=== PATIENT | female | born 1930 | race Caucasian/White ===

== ENCOUNTER 2017-05-19 18:10 | Inpatient (IN) ==
--- NOTE | 2017-05-19 19:03 | Emergency Department Note ---
Arrival - Arrival Chief Complaint: Shortness of Breath ED Nursing Triage Note: pt was dx with pneumonia about 2 weeks ago. pt has a cough and pain in back with coughing. pt also has swelling to both legs Mode of Arrival: Stretcher Time Seen by Provider: 05/19/17 18:52 - History of Present Illness HPI Narrative: This is an 86-year-old white female with history of interstitial lung disease, left ventricular ejection fraction of 60% with diastolic dysfunction, bilateral pneumonia in December 2016, who presents with a week of generalized fatigue and shortness of breath for which she saw her family physician approximately 1 week ago for chest x-ray did not show pneumonia specifically but where the radiologist recommended a CT scan of the chest which the patient refused who was treated with a shot of ceftriaxone and Zithromax with prednisone and presents now with worsening cough fatigue and new onset of midthoracic back pain for the past 2 days. The patient has had no fever nor chills. Allergies/Adverse Reactions: Allergies Allergy/AdvReac Type Severity Reaction Status Date / Time Iodinated Contrast Media - Allergy Unknown Unknown/Unable Verified 04/10/16 15: 41 Oral and to obtain [Iodinated Contrast Media - IV Dye] iodine Allergy Unknown Unknown/Unable Verified 04/10/16 15:41 to obtain Home Medications: Home Medications Medication Instructions Recorded Confirmed Type Aspirin [Ecotrin] 81 mg PO QAM 12/21/15 05/19/17 History Budesonide/Formoterol 160-4.5 1 puff INH BID 12/21/15 05/19/17 History [Symbicort 160-4.5] Carvedilol [Coreg] 3.125 mg PO BID 12/21/15 05/19/17 History Omeprazole 40 mg PO QAM 04/10/16 05/19/17 History Ipratropium/Albuterol Inhaler 2 puff INH BID 07/23/16 05/19/17 History [Combivent Respimat Inhaler] Ipratropium/Albuterol Sulfate 3 ml INH QID PRN 07/23/16 05/19/17 History [Iprat-Albut 0.5-3(2.5) mg/3 ml] Multivitamin (Centrum) [Centrum 1 tablet PO BEDTIME 07/23/16 05/19/17 History Tab] predniSONE TAB [PredniSONE] 10 mg PO QAM 07/23/16 05/19/17 History Cefdinir [Cefdinir] 300 mg PO Q12H 05/19/17 05/19/17 History Furosemide Tab [Lasix Tab] 40 mg PO QAM 05/19/17 05/19/17 History HYDROcodone/ACETAMIN 5-325 [[place] 1 tablet PO Q4H PRN 05/19/17 05/19/17 History 5-325] Polyethylene Glycol Powder 17 gm PO QAM 05/19/17 05/19/17 History [Miralax] Rosuvastatin Calcium [Rosuvastatin 10 mg PO BEDTIME 05/19/17 05/19/17 History Calcium] Valsartan [Valsartan] 40 mg PO QAM 05/19/17 05/19/17 History predniSONE TAB [PredniSONE] 20 mg PO QAM 05/19/17 05/19/17 History Review of System - Review of System Constitutional: Absent: fever, night sweats Eyes: Absent: redness, vision change Head/Ears/Nose/Throat: Absent: epistaxis, nasal drainage Respiratory: Present: cough Cardiovascular: Present: dyspnea on exertion. Absent: palpitations, edema Gastrointestinal: Absent: diarrhea, constipation, hematemesis, melena Genitourinary female: Absent: dysuria, discharge Musculoskeletal: Absent: joint swelling, lower back pain, leg pain Skin: Absent: change in color, change in hair/nails, pruritus Neurological: Absent: numbness, paresthesias Psychiatric: Absent: anxiety, depression Endocrine: Absent: heat intolerance, polydipsia, polyuria Hematological/Lymphatic: Absent: easy bruising, lymphadenopathy Allergic/Immunologic: Absent: urticaria, itchy eyes Medical,Surgical,& Family Hx - Medical History Cardio: History of: CHF, Hypertension, Cardiovascular Problems Endocrine: History of: Dyslipidemia Rheumatology: History of;: Rheumatoid Arthritis Respiratory: History of: Asthma, Bronchitis, COPD, Respiratory Problems (2 inhalers wheezing put on by earring maker) Renal: History of: Renal Failure, Renal Problems Gastrointestinal: History of: GERD, GI Problems (large hiatal hernia with aspiration) Musculoskeletal: History of: Musculoskeletal Problems (left shoulder pain) - Surgical History Cardiac Surgeries: Sugical HX of: Cardiac Surgery (CABG X3 1995) HEENT Surgeries: Surgical HX of: Eye Surgery Abdominal Surgeries: Surgical HX of: Cholecystectomy Orthopedic Surgeries: Surgical HX of;: Total Knee Replacement (left knee X2) - Family History Family History: Reports;: Family Hypertension - Social History Smoking Status: Never smoker Frequency of Alcohol Use: None Type of Drug Use: None Exam Vital Signs: Vital Signs Temperature 98.7 F 05/19/17 18:15 Pulse Rate 103 H 05/19/17 18:15 Respiratory Rate 18 05/19/17 18:44 Blood Pressure 174/74 05/19/17 18:15 O2 Sat by Pulse Oximetry 95 05/19/17 18:15 - General Exam limited due to: ALOC - Head Head exam: Present: atraumatic, normocephalic - Eye Eye exam: Present: normal appearance, PERRL, EOMI - ENT ENT exam: Present: normal exam, normal oropharynx - Neck Neck exam: Present: normal inspection, full ROM - Chest Chest inspection: Present: normal inspection - Respiratory Respiratory exam: Present: normal lung sounds bilaterally. Absent: accessory muscle use, rales, rhonchi, wheezes - Cardiovascular Cardiovascular exam: Present: regular rate, normal rhythm - Abdominal Exam Abdominal exam: Present: soft, normal bowel sounds - Extremities Exam Extremities exam: Present: normal inspection, full ROM - Back Exam Back exam: Present: normal inspection, full ROM - Neurological Exam Neurological exam: Present: alert, oriented X3, CN II-XII intact - Psychiatric Psychiatric exam: Present: normal affect, normal mood Course Course Narrative: Because the patient has persistent shortness of breath and profound fatigue over the past week which is dramatic change from her baseline and because the patient is unwilling to go home in her current state the patient will be admitted to the hospital for a more expedient pulmonary and cardiology consultation with regard to the interstitial pulmonary fibrotic problem and the large hiatal hernia which is compressing the right atrium as to whether these 2 conditions may be contributing to the patient's dyspnea on exertion which is so dramatically worse over the past week. The case was discussed with the hospitalist who agreed to admit the hospital patient to the hospital Results - Labs CBC & BMP: 05/19/17 18:49 05/19/17 18:49 Disposition Clinical Impression: Interstitial pulmonary fibrosis, Dyspnea, Fatigue Disposition: Still a Patient
[2017-05-19 19:32] LABS: Basophils % 0.1 % (0.0-0.8); Eosinophils % 0.2 % (0.00-10.9); Hematocrit 37.6 VOL% (35.7-47.0); Hemoglobin 12.8 GM/DL (12.0-16.0); Immature Granulocytes Absolute 0.12 #; Lymphocytes # 1.1 10*3/uL (1.4-4.0); Lymphocytes % 9.5 % (21.3-54.2); Mean Corpuscular Hemoglobin 33 PG (27-34); Mean Corpuscular Volume 96.7 FL (87-102); Mean Platelet Volume 10.8 FL (9.6-12.0); Monocytes # 0.9 10*3/uL (0.11-0.8); Monocytes % 7.6 % (1.7-12.7); Neutrophils # 9.3 10*3/uL (1.4-7.4); Neutrophils % 81.6 % (38.7-73.9); Platelet Count 172 T/CUMM (130-400); Red Blood Count 3.89 MC/CUMM (3.8-5.5); Red Cell Distribution Width 14.2 % (9.3-17.3); White Blood Count 11.4 T/CUMM (4-12)
[2017-05-19 19:47] LABS: Alanine Aminotransferase 43 U/L (13-56); Alkaline Phosphatase 94 U/L (45-117); Aspartate Amino Transferase 29 U/L (0-37); Bilirubin,Total < 0.39 MG/DL (0.2-1.0); Blood Urea Nitrogen 33 MG/DL (7-18); Calcium 8.4 MG/DL (8.5-10.1); Glucose 148 MG/DL (74-106); Osmolality,Calculated 284.7 MOS/KG (273-304); Potassium 4.2 MMOL/L (3.5-5.1); Sodium 138 MMOL/L (136-145); Total Protein 6.4 G/DL (6.4-8.3); Troponin I Only 0.035 NG/ML (0.00-0.045)
--- NOTE | 2017-05-19 19:59 | DUMMY REPORT TO COMPLETE ORDER ---
See report scanned to EMR
--- NOTE | 2017-05-19 20:09 | CT Report ---
Exam: CT chest without intravenous contrast Exam date: 05/19/2017 8:00 PM Clinical History: 86 years Female shortness of breath, pulmonary fibrosis Technique: Axial computed tomography images of the chest without intravenous contrast. The CT exam was performed using one or more of the following dose reduction techniques: Automated exposure control, adjustment of the mA and/or kV according to patient size, or use of iterative reconstruction technique. Comparison: No relevant prior studies available Findings: Lungs: Irregular Interlobular septal and peribronchial thickening with groundglass and parenchymal opacities within a central distribution. Pleural spaces: No pneumothorax. No significant effusion Heart: Prior coronary artery bypass graft with atheromatous changes along the lower Mediastinum: Large hiatal hernia with entirety of the stomach above the diaphragm with mass effect on the right atrium Bones/joints: Intact. No acute fracture. No dislocation. Marked osteoporosis with multilevel spondylosis and advanced degenerative changes throughout the shoulders and sternoclavicular joints Soft tissues: Unremarkable Vasculature: Intact Lymph nodes: No enlarged lymph nodes Visualized abdomen: Right renal cysts Impression: 1. Large hiatal hernia with entirity of stomach above the diaphragm resulting in mass effect on the right atrium 2. 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 Other findings as described PROCEDURE INTERPRETED AT [facility] DEPARTMENT OF RADIOLOGY Final Report Signed by: Jesse Rodriguez MD
[2017-05-19 20:12] LABS: VBG Base Excess 5.4 MEQ/L (0-4); VBG Oxygen Saturation 98.1 %; VBG PCO2 43.8 MMHG (41-51); VBG PH 7.454; VBG PO2 118.4 MMHG (17-40)
--- NOTE | 2017-05-19 23:18 | Hospitalist History & Physical ---
Assessment and Plan - Time spent with patient Time spent with patient: Less than 30 minutes (1) Interstitial pulmonary fibrosis Status: Chronic Assessment and plan: O2 as needed Solumedrol 40mg q8 hours Consult pulmonology PPI daily Current Visit: Yes (2) Congestive heart failure Status: Chronic Assessment and plan: Last echo was in 2015. Will order an echo for the AM Lasix 40mg po BID IV Cardiology consultation Repeat troponins and EKGs Current Visit: Yes Qualifiers: Congestive heart failure type: diastolic (3) Hypertension Status: Chronic Assessment and plan: Restarted home medications Current Visit: No (4) Hiatal hernia Status: Chronic Current Visit: No (5) Physical deconditioning Status: Acute Assessment and plan: Will order PT/OT Current Visit: Yes (6) Sacral decubitus ulcer Status: Acute Assessment and plan: Will consult wound care Current Visit: Yes History of Present Illness Chief complaint: shortness of breath, decreased activity History of present illness: Called to the ER for Ms. Renee who is a 86 year old female that has had decreased activity for the past two weeks per daughter. Patient normally walks around, takes herself to the bathroom, and has minimal assistance with her ADL' s. Within the past two weeks, patient has not been as active due to weakness and shortness of breath and has required her to keep her bedtime O2 on throughout the entire day. Patient denies chest pain, fevers, n/v/d, urinary or bowel issues, or change in coughing but does admit to shortness of breath, chronic cough, and lower back pain. Patient saw her PCP Dr. Murillo on Monday. He thought she had pneumonia and was given Rocephin IM, Rx for Zpack , and Prednisone but she has had no significant improvement. Today in the ER she received a CT chest that showed large hiatal hernia with the stomach being above the diaphragm and impending on the right atrium and interstitial fibrosis. She is followed by Dr. Proctor for her pulmonary fibrosis and is scheduled to see him on May 30. She is unsure of her last set of PFT's but could possibly be six months ago. She is followed by Dr. Mark for her CHF and CABG in 1995. She last saw Dr. Mark on Apr 26 with no change in current treatment regimen. Her last echocardiogram was in 2015 which showed a EF of 60%, mild LVH, Grade I diastolic dysfunction, and TVR. Additional history includes hiatal hernia, anemia, HTN, knee replacement, shoulder surgery, 2 C-sections, dyslipidemia, cholecystectomy, appendectomy, and tonsillectomy. She will be admitted under hospital medicine service where she will receive cardiology and pulmonology consultations. Medications were reviewed and reconciled as appropriate. Home Medications Medication Instructions Recorded Confirmed Type Aspirin [Ecotrin] 81 mg PO QAM 12/21/15 05/19/17 History Budesonide/Formoterol 160-4.5 1 puff INH BID 12/21/15 05/19/17 History [Symbicort 160-4.5] Carvedilol [Coreg] 3.125 mg PO BID 12/21/15 05/19/17 History Omeprazole 40 mg PO QAM 04/10/16 05/19/17 History Ipratropium/Albuterol Inhaler 2 puff INH BID 07/23/16 05/19/17 History [Combivent Respimat Inhaler] Ipratropium/Albuterol Sulfate 3 ml INH QID PRN 07/23/16 05/19/17 History [Iprat-Albut 0.5-3(2.5) mg/3 ml] Multivitamin (Centrum) [Centrum 1 tablet PO BEDTIME 07/23/16 05/19/17 History Tab] predniSONE TAB [PredniSONE] 10 mg PO QAM 07/23/16 05/19/17 History Cefdinir [Cefdinir] 300 mg PO Q12H 05/19/17 05/19/17 History Furosemide Tab [Lasix Tab] 40 mg PO QAM 05/19/17 05/19/17 History HYDROcodone/ACETAMIN 5-325 [[place] 1 tablet PO Q4H PRN 05/19/17 05/19/17 History 5-325] Polyethylene Glycol Powder 17 gm PO QAM 05/19/17 05/19/17 History [Miralax] Rosuvastatin Calcium [Rosuvastatin 10 mg PO BEDTIME 05/19/17 05/19/17 History Calcium] Valsartan [Valsartan] 40 mg PO QAM 05/19/17 05/19/17 History predniSONE TAB [PredniSONE] 20 mg PO QAM 05/19/17 05/19/17 History Allergies Allergy/AdvReac Type Severity Reaction Status Date / Time Iodinated Contrast Media - Allergy Unknown Unknown/Unable Verified 04/10/16 15: 41 Oral and to obtain [Iodinated Contrast Media - IV Dye] iodine Allergy Unknown Unknown/Unable Verified 04/10/16 15:41 to obtain Medical,Surgical,& Family Hx - Medical History Cardio: History of: CHF, Hypertension, Cardiovascular Problems No history of: [place] Endocrine: History of: Dyslipidemia Respiratory: History of: Asthma, COPD, Respiratory Problems (pul fibrosis) Gastrointestinal: History of: GERD, GI Problems (large hiatal hernia with aspiration) Hematology: History of: Anemia - Surgical History Cardiac Surgeries: Sugical HX of: Cardiac Surgery (CABG X3 1995) HEENT Surgeries: Surgical HX of: Eye Surgery, Tonsilectomy & Adenoidectomy Abdominal Surgeries: Surgical HX of: Appendectomy, Cholecystectomy Reproductive Surgeries: Surgical HX of;: Section Orthopedic Surgeries: Surgical HX of;: Orthopedic Surgery (shoulder surgery), Total Knee Replacement (left knee X2) - Family History Family History: Reports;: Family Cancer (father-stomach), Family Heart Disease ( CHF-mom), Family Hypertension, Additional Family History (pul fibrosis- sister, 2 aunts, mom; cirrhosis of the liver- son) - Social History Smoking Status: Never smoker Frequency of Alcohol Use: None Type of Drug Use: None Marital Status: Single Lives With:: Alone Functional capacity: independent ambulation - Constitutional Constitutional: Present: fatigue. Absent: anorexia, chills, fever(s), frequent falls, headache(s) - EENT Eyes: Absent: blurry vision Ears: Absent: decreased hearing Nose, mouth and throat: Absent: headache(s), neck pain - Cardiovascular Cardiovascular: Present: dyspnea, dyspnea on exertion, edema. Absent: chest pain at rest, chest pain with activity, diaphoresis, lightheadedness, orthopnea , palpitations - Respiratory Respiratory: Present: cough, dyspnea, dyspnea on exertion. Absent: hemoptysis, change in phlegm color - Gastrointestinal Gastrointestinal: Absent: abdominal pain, change in bowel habits, constipation, diarrhea, dysphagia, nausea, vomiting - Genitourinary Genitourinary: Absent: difficulty urinating, dysuria, flank pain - Musculoskeletal Musculoskeletal: Present: back pain - Neurological Neurological: Absent: abnormal gait - Psychiatric Psychiatric: Absent: anxiety - Endocrine Endocrine: Absent: cold intolerance, heat intolerance - Hematologic/Lymphatic Hematologic/Lymphatic: Absent: easy bleeding Exam - Constitutional Vitals: Period Temp Pulse Resp BP Sys/Merino Pulse Ox Last 24 Hr 98.7 F-98.7 F 103-103 18-20 174-174/74-74 95 General appearance: no acute distress, morbidly obese - Head Head exam: Present: normal inspection, normocephalic - Eye Eye exam: Present: EOMI Pupils: Present: JOSE, normal accommodation - ENT ENT exam: Present: normal exam - Neck Neck exam: Present: normal inspection - Respiratory Respiratory exam: Present: rales (Lower bases bilaterally. Respirations even and unlabored. Symmetrical rise and fall of chest noted.), other (Bowel sounds auscultated over sternum.). Absent: accessory muscle use - Cardiovascular Cardiovascular exam: Present: regular rate and rhythm. Absent: JVD - GI/Abdominal GI/Abdominal exam: Present: soft. Absent: firm, tenderness - Extremities Exam Extremities exam: Present: normal inspection, normal capillary refill, full ROM , edema (3+ edema to bilateral lower extremities.) - Back Exam Back exam: Present: normal inspection - Neurological Exam Neurological exam: Present: alert, oriented X3, CN II-XII intact - Psychiatric Psychiatric exam: Present: normal affect, normal mood - Skin Skin exam: Present: normal color, warm, dry, intact Results - Labs CBC & BMP: 05/19/17 18:49 05/19/17 18:49 Lab Results: I have reviewed the past 24 hour labs - EKG EKG results: interpreted by MASON
[2017-05-19] MEDS ORDERED: guaiFENesin 200 MG/10 ML UDCUP PO PRN (23:47)
[2017-05-19] MEDS ORDERED: SODIUM CHLORIDE 0.9% 1,000 ML IV SCH (23:47)
[2017-05-19] MEDS ORDERED: MORPHINE 2 MG/1 ML SYRINGE IV PRN (23:47)
[2017-05-19] MEDS ORDERED: ONDANSETRON 4 MG/2 ML VIAL IV PRN (23:47)
[2017-05-19] MEDS ORDERED: ACETAMINOPHEN 325 MG TABLET PO PRN (23:47)
[2017-05-20 00:37] LABS: Troponin I Only 0.049 NG/ML (0.00-0.045)
[2017-05-20 00:53] LABS: Magnesium 2.4 MG/DL (1.8-2.4)
[2017-05-20 00:54] LABS: Risk Ratio 2.32
[2017-05-20] MEDS: ALBUTEROL/IPRATROPIUM 3 ML NEB RESP TX SCH ×3 (01:17→19:42)
[2017-05-20] MEDS: methylPREDNISolone SOD SUC 40 MG/1 ML VIAL IV SCH ×4 (01:39→23:24)
[2017-05-20] MEDS: ENOXAPARIN 40 MG/0.4 ML SYRINGE SUBCUT SCH ×2 (01:53→09:17)
[2017-05-20 06:55] LABS: Apearance,Urine CLEAR (Clear); Bilirubin,Urine Negative (Negative); Blood, Urine Small mg/dL (Negative); Glucose,Urine (UA) Negative (Negative); Ketones,Urine Negative (Negative); Mucus,Urine Occasional /LPF (Occasional); Nitrite,Urine Negative (Negative); Protein,Urine Negative; RBC,Urine 2 /HPF (0-4); Squamous Epithelial Cell,Urine Occasional /HPF (0-10); Urine Color Straw (Yellow); Urine Specific Gravity 1.008 (1.001-1.035); Urine Urobilinogen < 2.0 EU/DL (0.2-1.0); WBC,Urine <1 /HPF (0-6)
--- NOTE | 2017-05-20 08:19 | Pulmonology Consult Note ---
Assessment and Plan (1) Hiatal hernia Status: Chronic Assessment and plan: The patient has a large hiatal hernia and will continue with antireflux measures. Current Visit: No (2) Interstitial pulmonary fibrosis Status: Chronic Assessment and plan: She had significant infiltrates last year and actually cleared a lot with steroids. She apparently has been doing fairly well but certainly does have some interstitial lung disease. Will try steroids again for little while. Current Visit: Yes (3) Hypertension Status: Chronic Assessment and plan: Her blood pressure and heart rate seems stable. Current Visit: No (4) Physical deconditioning Status: Acute Assessment and plan: It is not clear if her lung disease is causing her extreme weakness and deconditioning. Current Visit: Yes (5) Sacral decubitus ulcer Status: Acute Assessment and plan: She apparently has been lying around a good bit to get a decubitus ulcer. Current Visit: Yes History of Present Illness Chief complaint: Weakness History of present illness: Ms. Renee is a 86 year old white female that I have seen in the past but is been a little while. Last year she came in with fairly significant interstitial pneumonitis but she got better with steroids and her x-ray looked much improved. She has not been in in a while and apparently was doing reasonably well. However the past 2 weeks she has had no energy and felt very weak. She did not feel like she could do much at all. Her cough and shortness of breath have not been terrible. She was thought to have pneumonia and started on antibiotics. She has not gotten any better however. Overall she says she is just very weak. She does not think she has had any fever. She does have a large hiatal hernia with history of hypertension and hyperlipidemia. She is having normal ejection fraction. For the past year her breathing has been reasonably stable. Home Medications Medication Instructions Recorded Confirmed Type Aspirin [Ecotrin] 81 mg PO QAM 12/21/15 05/19/17 History Budesonide/Formoterol 160-4.5 1 puff INH BID 12/21/15 05/19/17 History [Symbicort 160-4.5] Carvedilol [Coreg] 3.125 mg PO BID 12/21/15 05/19/17 History Omeprazole 40 mg PO QAM 04/10/16 05/19/17 History Ipratropium/Albuterol Inhaler 2 puff INH BID 07/23/16 05/19/17 History [Combivent Respimat Inhaler] Ipratropium/Albuterol Sulfate 3 ml INH QID PRN 07/23/16 05/19/17 History [Iprat-Albut 0.5-3(2.5) mg/3 ml] Multivitamin (Centrum) [Centrum 1 tablet PO BEDTIME 07/23/16 05/19/17 History Tab] predniSONE TAB [PredniSONE] 10 mg PO QAM 07/23/16 05/19/17 History Cefdinir [Cefdinir] 300 mg PO Q12H 05/19/17 05/19/17 History Furosemide Tab [Lasix Tab] 40 mg PO QAM 05/19/17 05/19/17 History HYDROcodone/ACETAMIN 5-325 [[place] 1 tablet PO Q4H PRN 05/19/17 05/19/17 History 5-325] Polyethylene Glycol Powder 17 gm PO QAM 05/19/17 05/19/17 History [Miralax] Rosuvastatin Calcium [Rosuvastatin 10 mg PO BEDTIME 05/19/17 05/19/17 History Calcium] Valsartan [Valsartan] 40 mg PO QAM 05/19/17 05/19/17 History predniSONE TAB [PredniSONE] 20 mg PO QAM 05/19/17 05/19/17 History Allergies Allergy/AdvReac Type Severity Reaction Status Date / Time Iodinated Contrast Media - Allergy Unknown Unknown/Unable Verified 04/10/16 15: 41 Oral and to obtain [Iodinated Contrast Media - IV Dye] iodine Allergy Unknown Unknown/Unable Verified 04/10/16 15:41 to obtain - Constitutional Constitutional: Present: fatigue, weakness. Absent: chills, fever(s), weight loss - EENT Eyes: Absent: loss of vision Ears: Absent: decreased hearing Nose, mouth and throat: Absent: dysphagia, headache(s), sinus pressure - Cardiovascular Cardiovascular: Present: dyspnea on exertion. Absent: chest pain at rest, chest pain with activity, orthopnea, palpitations, PND - Respiratory Respiratory: Present: cough. Absent: hemoptysis, wheezing, change in phlegm color - Gastrointestinal Gastrointestinal: Present: heartburn. Absent: abdominal pain, change in bowel habits, dysphagia, nausea, vomiting - Genitourinary Genitourinary: Absent: difficulty urinating, hematuria, urinary frequency - Musculoskeletal Musculoskeletal: Present: muscle weakness. Absent: arthralgias - Neurological Neurological: Absent: abnormal speech, focal weakness, paresthesias - Psychiatric Psychiatric: Absent: anxiety Exam (Pulmonay) H&P - Constitutional Vitals: Period Temp Pulse Resp BP Sys/Merino Pulse Ox Last 24 Hr 96.8 F-98.7 F 64-103 16-22 144-178/66-98 95-99 General appearance: no acute distress, over weight - Head Head exam: Present: normal inspection, normocephalic - Eye Eye exam: Present: EOMI. Absent: scleral icterus Pupils: Present: JOSE - ENT ENT exam: Present: normal exam - Neck Neck exam: Absent: lymphadenopathy, thyromegaly - Respiratory Respiratory exam: Present: rales, other (She has good breath sounds bilaterally but does have some bilateral crackles). Absent: wheezes - Cardiovascular Cardiovascular exam: Present: regular rate and rhythm. Absent: gallop, JVD, systolic murmur - GI/Abdominal GI/Abdominal exam: Present: normal bowel sounds, soft. Absent: organomegaly, tenderness - Extremities Exam Extremities exam: Present: other (She has no clubbing). Absent: calf tenderness , edema - Neurological Exam Neurological exam: Present: alert, oriented X3, CN II-XII intact - Psychiatric Psychiatric exam: Present: normal affect - Skin Skin exam: Present: warm, dry Medical,Surgical,& Family Hx - Medical History Cardio: History of: CHF, Hypertension, Cardiovascular Problems No history of: [place] Endocrine: History of: Dyslipidemia Rheumatology: History of;: Rheumatoid Arthritis Respiratory: History of: Asthma, Bronchitis, COPD, Respiratory Problems (pul fibrosis) Renal: History of: Renal Failure, Renal Problems Gastrointestinal: History of: GERD, GI Problems (large hiatal hernia with aspiration) Musculoskeletal: History of: Musculoskeletal Problems (left shoulder pain) Hematology: History of: Anemia - Surgical History Cardiac Surgeries: Sugical HX of: Cardiac Surgery (CABG X3 1995) Thoracic Surgeries: Patient denies;: Organ Transplant, Lobectomy HEENT Surgeries: Surgical HX of: Eye Surgery, Tonsilectomy & Adenoidectomy Abdominal Surgeries: Surgical HX of: Appendectomy, Cholecystectomy Reproductive Surgeries: Surgical HX of;: Section Patient denies;: Genitourinary Surgery Orthopedic Surgeries: Surgical HX of;: Orthopedic Surgery (shoulder surgery), Total Knee Replacement (left knee X2) - Family History Family History: Reports;: Family Cancer (father-stomach), Family Heart Disease ( CHF-mom), Family Hypertension, Additional Family History (pul fibrosis- sister, 2 aunts, mom; cirrhosis of the liver- son) - Social History Smoking Status: Never smoker Frequency of Alcohol Use: None Type of Drug Use: None Results - Labs CBC & BMP: 05/19/17 18:49 05/19/17 18:49 Labs: PO2 is 118 with a PCO2 of 43 and a pH of 7.45 - Diagnostic Findings Procedure: CT - chest: image reviewed by me, report reviewed by me (She does have bilateral interstitial changes that are a little worse than they were last year.)
[2017-05-20] MEDS: PANTOPRAZOLE 40 MG TABLET PO SCH (09:15)
[2017-05-20] MEDS: CARVEDILOL 3.125 MG TABLET PO SCH ×2 (09:16→21:47)
[2017-05-20] MEDS: ASPIRIN EC 81 MG TABLET PO SCH (09:16)
[2017-05-20] MEDS: VALSARTAN 80 MG TABLET PO SCH (09:16)
[2017-05-20] MEDS: FUROSEMIDE 40 MG/4 ML VIAL IV SCH ×2 (09:16→16:35)
[2017-05-20] MEDS: POLYETHYLENE GLYCOL POWDER 17 GM PACK PO SCH (09:20)
[2017-05-20] MEDS: BUDESONIDE/FORMOTEROL 160-4.5 INHALER 6 GM INH SCH ×2 (09:22→21:47)
[2017-05-20] MEDS ORDERED: ZINC OXIDE 16% PASTE 57 GM TUBE TOP PRN (09:25)
--- NOTE | 2017-05-20 10:43 | Cardiology Progress Note ---
Exam (Progress Note) - Constitutional Vitals: Period Temp Pulse Resp BP Sys/Merino Pulse Ox Last 24 Hr 96.8 F-98.7 F 64-103 16-22 144-178/66-98 95-99 Result/EKG - Labs CBC & BMP: 05/19/17 18:49 05/19/17 18:49 Labs: Laboratory Results - last 24 hr 05/19/17 05/19/17 05/19/17 18:49 18:49 18:49 WBC 11.4 RBC 3.89 Hgb 12.8 Hct 37.6 MCV 96.7 MCH 33 MCHC 34.0 RDW 14.2 Plt Count 172 MPV 10.8 Neut % (Auto) 81.6 H Lymph % (Auto) 9.5 L [place] % (Auto) 7.6 Eos % (Auto) 0.2 Baso % (Auto) 0.1 Neut # (Auto) 9.3 H Lymph # (Auto) 1.1 L [place] # (Auto) 0.9 H Eos # (Auto) 0.0 Baso # (Auto) 0.0 Immature Gran % 1.0 Nucleated RBC % 0.0 Immature Gran # 0.12 Nucleated RBCs # 0.00 Immature Plt Fraction 0.0 VBG pH VBG pCO2 VBG pO2 VBG HCO3 VBG Total CO2 VBG O2 Saturation VBG Base Excess Sodium 138 Potassium 4.2 Chloride 101 Carbon Dioxide 30 Anion Gap 11.2 BUN 33 H Creatinine 1.50 H GFR Calculation 31 BUN/Creatinine Ratio 22.00 H Glucose 148 H Calculated Osmolality 284.7 Calcium 8.4 L Magnesium Total Bilirubin < 0.39 AST 29 ALT 43 Alkaline Phosphatase 94 Total Creatine Kinase CK-MB (CK-2) Troponin I 0.035 C-Reactive Protein B-Natriuretic Peptide 314 H Total Protein 6.4 Albumin 3.0 L Globulin 3.4 Albumin/Globulin Ratio 0.8 L Triglycerides Cholesterol LDL Cholesterol VLDL Cholesterol HDL Cholesterol Heart Disease Risk Ratio Urine Color Urine Appearance Urine pH Ur Specific [place] Urine Protein Urine Glucose (UA) Urine Ketones Urine Blood Urine Nitrate Urine Bilirubin Urine Urobilinogen Urine Leukocytes Urine RBC Urine WBC Ur Squamous Epith Cells Urine Mucus Ur Culture Indicated? 05/19/17 05/19/17 05/19/17 18:49 19:44 23:59 WBC RBC Hgb Hct MCV MCH MCHC RDW Plt Count MPV Neut % (Auto) Lymph % (Auto) [place] % (Auto) Eos % (Auto) Baso % (Auto) Neut # (Auto) Lymph # (Auto) [place] # (Auto) Eos # (Auto) Baso # (Auto) Immature Gran % Nucleated RBC % Immature Gran # Nucleated RBCs # Immature Plt Fraction VBG pH 7.454 VBG pCO2 43.8 VBG pO2 118.4 H VBG HCO3 30.0 H VBG Total CO2 31.4 VBG O2 Saturation 98.1 VBG Base Excess 5.4 H Sodium Potassium Chloride Carbon Dioxide Anion Gap BUN Creatinine GFR Calculation BUN/Creatinine Ratio Glucose Calculated Osmolality Calcium Magnesium Total Bilirubin AST ALT Alkaline Phosphatase Total Creatine Kinase 32 CK-MB (CK-2) 1.7 Troponin I 0.049 H D C-Reactive Protein 1.20 H B-Natriuretic Peptide Total Protein Albumin Globulin Albumin/Globulin Ratio Triglycerides Cholesterol LDL Cholesterol VLDL Cholesterol HDL Cholesterol Heart Disease Risk Ratio Urine Color Urine Appearance Urine pH Ur Specific [place] Urine Protein Urine Glucose (UA) Urine Ketones Urine Blood Urine Nitrate Urine Bilirubin Urine Urobilinogen Urine Leukocytes Urine RBC Urine WBC Ur Squamous Epith Cells Urine Mucus Ur Culture Indicated? 05/19/17 05/20/17 23:59 05:50 WBC RBC Hgb Hct MCV MCH MCHC RDW Plt Count MPV Neut % (Auto) Lymph % (Auto) [place] % (Auto) Eos % (Auto) Baso % (Auto) Neut # (Auto) Lymph # (Auto) [place] # (Auto) Eos # (Auto) Baso # (Auto) Immature Gran % Nucleated RBC % Immature Gran # Nucleated RBCs # Immature Plt Fraction VBG pH VBG pCO2 VBG pO2 VBG HCO3 VBG Total CO2 VBG O2 Saturation VBG Base Excess Sodium Potassium Chloride Carbon Dioxide Anion Gap BUN Creatinine GFR Calculation BUN/Creatinine Ratio Glucose Calculated Osmolality Calcium Magnesium 2.4 Total Bilirubin AST ALT Alkaline Phosphatase Total Creatine Kinase CK-MB (CK-2) Troponin I C-Reactive Protein B-Natriuretic Peptide Total Protein Albumin Globulin Albumin/Globulin Ratio Triglycerides 140 Cholesterol 174 LDL Cholesterol 78.0 VLDL Cholesterol 28.0 HDL Cholesterol 75 H Heart Disease Risk Ratio 2.32 Urine Color Straw Urine Appearance Clear Urine pH 6.0 Ur Specific [place] 1.008 Urine Protein Negative Urine Glucose (UA) Negative Urine Ketones Negative Urine Blood Small Urine Nitrate Negative Urine Bilirubin Negative Urine Urobilinogen < 2.0 H Urine Leukocytes Negative Urine RBC 2 Urine WBC <1 Ur Squamous Epith Cells Occasional Urine Mucus Occasional Ur Culture Indicated? Not indicated
--- NOTE | 2017-05-20 11:01 | Cardiology Consult Note ---
Assessment and Plan (1) Dyspnea Status: Acute Current Visit: Yes (2) Fatigue Status: Acute Current Visit: Yes (3) Physical deconditioning Status: Chronic Current Visit: Yes (4) Interstitial pulmonary fibrosis Status: Chronic Current Visit: Yes (5) Hiatal hernia Status: Chronic Current Visit: No (6) Hypertension Status: Chronic Current Visit: No (7) CAD (coronary artery disease) Status: Chronic Current Visit: Yes (8) Pulmonary hypertension Status: Acute Current Visit: Yes (9) S/P CABG x 3 Status: Chronic Current Visit: No History of Present Illness - Data of Consult Patient: new to practice Consult date: 05/20/17 Requesting Physician: Ridge Moreno - Consult Narrative Reason for consult: edema History of present illness: [employer] HELPER: Dr. Smith PCP: Dr. Murillo Patient is an 86-year-old white female with history of coronary artery disease status post CABG in 1995. She also has hypertension, hyperlipidemia, pulmonary fibrosis followed routinely by Dr. Proctor. She has chronic lower extremity edema left greater than right. She presented with complaints of weakness, lower extremity edema, shortness of breath. She was recently treated as an outpatient by her PCP for possible pneumonia with Rocephin, Z-Momo and prednisone but this did not improve her symptoms. She was seen in clinic [address] Smith and at that point her Lasix had been increased and her lower extremity edema was improving overall. She is not having any fevers, chills. She has a mild cough only after using her breathing treatments. She is now requiring her nocturnal oxygen during the day as well. She has had worsening of bilateral lower extremity edema. She is compliant with her chronic daily steroid use. CT scan of the chest in the emergency room revealed a large hiatal hernia. I have reviewed her echocardiogram, she has preserved systolic function, no significant valvular pathology, very mild diastolic dysfunction, but does have significant pulmonary hypertension. She denies any melena, bright red blood per rectum. Impression and plan: -Shortness of breath-this is multifactorial and I believe predominantly due to her pulmonary condition with pulmonary fibrosis and pulmonary hypertension. Is also contributing to her lower extremity edema. Additionally she has kyphosis and a large hiatal hernia with the entire stomach contents in her chest. -Edema-this is all to multifactorial, partially related to her pulmonary hypertension and left lower extremity vein harvest. She tells me that this is improved from her baseline. Steroids are also contributing. -Coronary artery disease-clinically stable. -Hiatal hernia-this is large with her entire stomach in her chest and this likely contributing to her shortness of breath. I agree with current management, no new recommendations at this time. In general I do not think she has significant congestive heart failure. She has mild diastolic dysfunction which would certainly not contribute to the degree of edema that she has. This is more from her pulmonary hypertension. CC: Ridge Moreno MD - Home Medications and Allergies Home Medications: Home Medications Medication Instructions Recorded Confirmed Type Aspirin [Ecotrin] 81 mg PO QAM 12/21/15 05/19/17 History Budesonide/Formoterol 160-4.5 1 puff INH BID 12/21/15 05/19/17 History [Symbicort 160-4.5] Carvedilol [Coreg] 3.125 mg PO BID 12/21/15 05/19/17 History Omeprazole 40 mg PO QAM 04/10/16 05/19/17 History Ipratropium/Albuterol Inhaler 2 puff INH BID 07/23/16 05/19/17 History [Combivent Respimat Inhaler] Ipratropium/Albuterol Sulfate 3 ml INH QID PRN 07/23/16 05/19/17 History [Iprat-Albut 0.5-3(2.5) mg/3 ml] Multivitamin (Centrum) [Centrum 1 tablet PO BEDTIME 07/23/16 05/19/17 History Tab] predniSONE TAB [PredniSONE] 10 mg PO QAM 07/23/16 05/19/17 History Cefdinir [Cefdinir] 300 mg PO Q12H 05/19/17 05/19/17 History Furosemide Tab [Lasix Tab] 40 mg PO QAM 05/19/17 05/19/17 History HYDROcodone/ACETAMIN 5-325 [[place] 1 tablet PO Q4H PRN 05/19/17 05/19/17 History 5-325] Polyethylene Glycol Powder 17 gm PO QAM 05/19/17 05/19/17 History [Miralax] Rosuvastatin Calcium [Rosuvastatin 10 mg PO BEDTIME 05/19/17 05/19/17 History Calcium] Valsartan [Valsartan] 40 mg PO QAM 05/19/17 05/19/17 History predniSONE TAB [PredniSONE] 20 mg PO QAM 05/19/17 05/19/17 History Allergies/Adverse Reactions: Allergies Allergy/AdvReac Type Severity Reaction Status Date / Time Iodinated Contrast Media - Allergy Unknown Unknown/Unable Verified 04/10/16 15: 41 Oral and to obtain [Iodinated Contrast Media - IV Dye] iodine Allergy Unknown Unknown/Unable Verified 04/10/16 15:41 to obtain 12 point system: reviewed and no additional remarkable complaints except as stated Medical,Surgical,& Family Hx - Medical History Cardio: History of: CHF, Hypertension, Cardiovascular Problems No history of: [place] Endocrine: History of: Dyslipidemia Rheumatology: History of;: Rheumatoid Arthritis Respiratory: History of: Asthma, Bronchitis, COPD, Respiratory Problems (pul fibrosis) Renal: History of: Renal Failure, Renal Problems Gastrointestinal: History of: GERD, GI Problems (large hiatal hernia with aspiration) Musculoskeletal: History of: Musculoskeletal Problems (left shoulder pain) Hematology: History of: Anemia - Surgical History Cardiac Surgeries: Sugical HX of: Cardiac Surgery (CABG X3 1995) Thoracic Surgeries: Patient denies;: Organ Transplant, Lobectomy HEENT Surgeries: Surgical HX of: Eye Surgery, Tonsilectomy & Adenoidectomy Abdominal Surgeries: Surgical HX of: Appendectomy, Cholecystectomy Reproductive Surgeries: Surgical HX of;: Section Patient denies;: Genitourinary Surgery Orthopedic Surgeries: Surgical HX of;: Orthopedic Surgery (shoulder surgery), Total Knee Replacement (left knee X2) - Family History Family History: Reports;: Family Cancer (father-stomach), Family Heart Disease ( CHF-mom), Family Hypertension, Additional Family History (pul fibrosis- sister, 2 aunts, mom; cirrhosis of the liver- son) - Social History Smoking Status: Never smoker Frequency of Alcohol Use: None Type of Drug Use: None Physical Examination Vital Signs Temp Pulse Resp BP Pulse Ox 98.7 F 103 H 20 174/74 95 05/19/17 18:15 05/19/17 18:15 05/19/17 18:15 05/19/17 18:15 05/19/17 18:15 Result/EKG - Labs CBC & BMP: 05/19/17 18:49 05/19/17 18:49 Lab Results: I have reviewed the past 24 hour labs Labs: Laboratory Results - last 24 hr 10/06/17 10/06/17 10/06/17 18:49 18:49 18:49 WBC 11.4 RBC 3.89 Hgb 12.8 Hct 37.6 MCV 96.7 MCH 33 MCHC 34.0 RDW 14.2 Plt Count 172 MPV 10.8 Neut % (Auto) 81.6 H Lymph % (Auto) 9.5 L [place] % (Auto) 7.6 Eos % (Auto) 0.2 Baso % (Auto) 0.1 Neut # (Auto) 9.3 H Lymph # (Auto) 1.1 L [place] # (Auto) 0.9 H Eos # (Auto) 0.0 Baso # (Auto) 0.0 Immature Gran % 1.0 Nucleated RBC % 0.0 Immature Gran # 0.12 Nucleated RBCs # 0.00 Immature Plt Fraction 0.0 VBG pH VBG pCO2 VBG pO2 VBG HCO3 VBG Total CO2 VBG O2 Saturation VBG Base Excess Sodium 138 Potassium 4.2 Chloride 101 Carbon Dioxide 30 Anion Gap 11.2 BUN 33 H Creatinine 1.50 H GFR Calculation 31 BUN/Creatinine Ratio 22.00 H Glucose 148 H Calculated Osmolality 284.7 Calcium 8.4 L Magnesium Total Bilirubin < 0.39 AST 29 ALT 43 Alkaline Phosphatase 94 Total Creatine Kinase CK-MB (CK-2) Troponin I 0.035 C-Reactive Protein B-Natriuretic Peptide 314 H Total Protein 6.4 Albumin 3.0 L Globulin 3.4 Albumin/Globulin Ratio 0.8 L Triglycerides Cholesterol LDL Cholesterol VLDL Cholesterol HDL Cholesterol Heart Disease Risk Ratio Urine Color Urine Appearance Urine pH Ur Specific [place] Urine Protein Urine Glucose (UA) Urine Ketones Urine Blood Urine Nitrate Urine Bilirubin Urine Urobilinogen Urine Leukocytes Urine RBC Urine WBC Ur Squamous Epith Cells Urine Mucus Ur Culture Indicated? 05/19/17 05/19/17 05/19/17 18:49 19:44 23:59 WBC RBC Hgb Hct MCV MCH MCHC RDW Plt Count MPV Neut % (Auto) Lymph % (Auto) [place] % (Auto) Eos % (Auto) Baso % (Auto) Neut # (Auto) Lymph # (Auto) [place] # (Auto) Eos # (Auto) Baso # (Auto) Immature Gran % Nucleated RBC % Immature Gran # Nucleated RBCs # Immature Plt Fraction VBG pH 7.454 VBG pCO2 43.8 VBG pO2 118.4 H VBG HCO3 30.0 H VBG Total CO2 31.4 VBG O2 Saturation 98.1 VBG Base Excess 5.4 H Sodium Potassium Chloride Carbon Dioxide Anion Gap BUN Creatinine GFR Calculation BUN/Creatinine Ratio Glucose Calculated Osmolality Calcium Magnesium Total Bilirubin AST ALT Alkaline Phosphatase Total Creatine Kinase 32 CK-MB (CK-2) 1.7 Troponin I 0.049 H D C-Reactive Protein 1.20 H B-Natriuretic Peptide Total Protein Albumin Globulin Albumin/Globulin Ratio Triglycerides Cholesterol LDL Cholesterol VLDL Cholesterol HDL Cholesterol Heart Disease Risk Ratio Urine Color Urine Appearance Urine pH Ur Specific [place] Urine Protein Urine Glucose (UA) Urine Ketones Urine Blood Urine Nitrate Urine Bilirubin Urine Urobilinogen Urine Leukocytes Urine RBC Urine WBC Ur Squamous Epith Cells Urine Mucus Ur Culture Indicated? 05/19/17 05/20/17 23:59 05:50 WBC RBC Hgb Hct MCV MCH MCHC RDW Plt Count MPV Neut % (Auto) Lymph % (Auto) [place] % (Auto) Eos % (Auto) Baso % (Auto) Neut # (Auto) Lymph # (Auto) [place] # (Auto) Eos # (Auto) Baso # (Auto) Immature Gran % Nucleated RBC % Immature Gran # Nucleated RBCs # Immature Plt Fraction VBG pH VBG pCO2 VBG pO2 VBG HCO3 VBG Total CO2 VBG O2 Saturation VBG Base Excess Sodium Potassium Chloride Carbon Dioxide Anion Gap BUN Creatinine GFR Calculation BUN/Creatinine Ratio Glucose Calculated Osmolality Calcium Magnesium 2.4 Total Bilirubin AST ALT Alkaline Phosphatase Total Creatine Kinase CK-MB (CK-2) Troponin I C-Reactive Protein B-Natriuretic Peptide Total Protein Albumin Globulin Albumin/Globulin Ratio Triglycerides 140 Cholesterol 174 LDL Cholesterol 78.0 VLDL Cholesterol 28.0 HDL Cholesterol 75 H Heart Disease Risk Ratio 2.32 Urine Color Straw Urine Appearance Clear Urine pH 6.0 Ur Specific [place] 1.008 Urine Protein Negative Urine Glucose (UA) Negative Urine Ketones Negative Urine Blood Small Urine Nitrate Negative Urine Bilirubin Negative Urine Urobilinogen < 2.0 H Urine Leukocytes Negative Urine RBC 2 Urine WBC <1 Ur Squamous Epith Cells Occasional Urine Mucus Occasional Ur Culture Indicated? Not indicated - Diagnostic Findings Procedure: Chest x-ray: report reviewed by me, CT - chest: report reviewed by me , Ultrasound: report reviewed by me - EKG EKG results: interpreted by me, sinus rhythm
--- NOTE | 2017-05-20 13:18 | DUMMY REPORT TO COMPLETE ORDER ---
See report scanned to EMR
--- NOTE | 2017-05-20 15:07 | DUMMY REPORT TO COMPLETE ORDER ---
See report scanned to EMR
--- NOTE | 2017-05-20 15:57 | Hospitalist Progress Note ---
Assessment and Plan (1) Congestive heart failure Status: Chronic Assessment and plan: Last echo with EF 60 Current Visit: Yes Qualifiers: Congestive heart failure type: diastolic (2) Hiatal hernia Status: Chronic Assessment and plan: Known to patient and family They did not know that it was so advanced Patient is not interested in a surgery consultation Current Visit: No (3) Interstitial pulmonary fibrosis Status: Chronic Assessment and plan: Pulmonary assisting Steroids, duonebs Current Visit: Yes (4) Hypertension Status: Chronic Current Visit: No (5) Physical deconditioning Status: Chronic Assessment and plan: PT/OT Current Visit: Yes (6) Sacral decubitus ulcer Status: Acute Current Visit: Yes (7) CAD (coronary artery disease) Status: Chronic Current Visit: Yes (8) Pulmonary hypertension Status: Acute Current Visit: Yes Hospitalist: Subjective Interval history: No acute events overnight. Patient reports that her breathing is fine as long as she doesn't move too much. Exam - Constitutional Vitals: Period Temp Pulse Resp BP Sys/Merino Pulse Ox Last 24 Hr 96.8 F-98.7 F 64-103 16-22 131-178/61-98 95-99 General appearance: normal weight - Head Head exam: Present: normocephalic, atraumatic - Eye Eye exam: Present: EOMI Pupils: Present: JOSE - ENT ENT exam: Present: normal exam - Neck Neck exam: Present: normal inspection - Respiratory Respiratory exam: Present: clear to auscultation bilaterally. Absent: rhonchi, wheezes - Cardiovascular Cardiovascular exam: Present: regular rate and rhythm - GI/Abdominal GI/Abdominal exam: Present: normal bowel sounds, soft. Absent: tenderness, rebound - Extremities Exam Extremities exam: Present: normal inspection - Back Exam Back exam: Present: normal inspection - Neurological Exam Neurological exam: Present: alert, oriented X3 - Psychiatric Psychiatric exam: Present: normal affect, normal mood - Skin Skin exam: Present: warm, intact Results - Labs CBC & BMP: 05/19/17 18:49 05/19/17 18:49
[2017-05-20] MEDS: ROSUVASTATIN 10 MG TABLET PO SCH (21:47)
[2017-05-21] MEDS: POLYETHYLENE GLYCOL POWDER 17 GM PACK PO SCH ×2 (06:08→09:16)
[2017-05-21 06:28] LABS: Basophils % 0.1 % (0.0-0.8); Hematocrit 34.9 VOL% (35.7-47.0); Immature Granulocytes % 1.8 %; Immature Granulocytes Absolute 0.25 #; Lymphocytes % 7.2 % (21.3-54.2); Mean Corpuscular HGB Conc 34.4 GM/DL (32-36); Mean Corpuscular Hemoglobin 33 PG (27-34); Mean Corpuscular Volume 95.1 FL (87-102); Mean Platelet Volume 10.4 FL (9.6-12.0); Monocytes # 0.5 10*3/uL (0.11-0.8); Monocytes % 3.4 % (1.7-12.7); Neutrophils # 12.2 10*3/uL (1.4-7.4); Neutrophils % 87.5 % (38.7-73.9); Platelet Count 168 T/CUMM (130-400); Red Blood Count 3.67 MC/CUMM (3.8-5.5); Red Cell Distribution Width 13.6 % (9.3-17.3); White Blood Count 13.9 T/CUMM (4-12)
[2017-05-21 06:58] LABS: Calcium 8.7 MG/DL (8.5-10.1); Magnesium 2.2 MG/DL (1.8-2.4); Osmolality,Calculated 290.3 MOS/KG (273-304); Potassium 4.3 MMOL/L (3.5-5.1)
[2017-05-21] MEDS: ALBUTEROL/IPRATROPIUM 3 ML NEB RESP TX SCH ×2 (07:32→19:59)
[2017-05-21] MEDS: ASPIRIN EC 81 MG TABLET PO SCH (08:34)
[2017-05-21] MEDS: FUROSEMIDE 40 MG/4 ML VIAL IV SCH (08:34)
[2017-05-21] MEDS: methylPREDNISolone SOD SUC 40 MG/1 ML VIAL IV SCH ×2 (08:34→15:10)
[2017-05-21] MEDS: VALSARTAN 80 MG TABLET PO SCH (08:34)
[2017-05-21] MEDS: CARVEDILOL 3.125 MG TABLET PO SCH ×2 (08:35→20:40)
[2017-05-21] MEDS: ENOXAPARIN 40 MG/0.4 ML SYRINGE SUBCUT SCH (08:39)
[2017-05-21] MEDS: PANTOPRAZOLE 40 MG TABLET PO SCH (08:43)
[2017-05-21] MEDS: BUDESONIDE/FORMOTEROL 160-4.5 INHALER 6 GM INH SCH ×2 (08:45→20:40)
--- NOTE | 2017-05-21 10:21 | Pulmonology Progress Note ---
Pulmonary - PN: Subj Interval history: Patient is an 86-year-old white lady that comes in with shortness of breath and weakness and does have some interstitial lung disease. She has been started on antibiotics and steroids and is feeling better today. She says she rested fairly well last night. She did cough up some sputum at times. She does feel like her breathing is better. She is eating some breakfast this morning. She says she feels overall much better. Exam (Progress Note) - Constitutional Vitals: Period Temp Pulse Resp BP Sys/Merino Pulse Ox Last 24 Hr 97.1 F-98.2 F 64-107 16-20 127-159/55-88 90-99 Exam: General appearance: no acute distress, over weight, she looks comfortable sitting up in bed. - Head Head exam: Present: normal inspection, normocephalic - Eye Eye exam: Present: EOMI. Absent: scleral icterus Pupils: Present: JOSE - ENT ENT exam: Present: normal exam - Neck Neck exam: Absent: lymphadenopathy, thyromegaly - Respiratory Respiratory exam: Present: She has good air movement with bilateral respiratory crackles. She does not have any wheezing. - Cardiovascular Cardiovascular exam: Present: regular rate and rhythm. Absent: gallop, JVD, systolic murmur - GI/Abdominal GI/Abdominal exam: Present: normal bowel sounds, soft. Absent: organomegaly, tenderness - Extremities Exam Extremities exam: Present: other (She has no clubbing). Absent: calf tenderness , edema - Neurological Exam Neurological exam: Present: alert, oriented X3, CN II-XII intact, she is moving her extremities okay. She may have some mild dementia. - Psychiatric Psychiatric exam: Present: normal affect - Skin Skin exam: Present: warm, dry Results - Labs CBC & BMP: 05/21/17 06:12 05/21/17 06:12 Assessment and Plan (1) Hiatal hernia Status: Chronic Assessment and plan: The patient has a large hiatal hernia and will continue with antireflux measures. Current Visit: No (2) Interstitial pulmonary fibrosis Status: Chronic Assessment and plan: She had significant infiltrates last year and actually cleared a lot with steroids. She apparently has been doing fairly well but certainly does have some interstitial lung disease. Will try steroids again for little while. She looks reasonably comfortable at present. Current Visit: Yes (3) Hypertension Status: Chronic Assessment and plan: Her blood pressure and heart rate seems stable. Current Visit: No (4) Physical deconditioning Status: Chronic Assessment and plan: It is not clear if her lung disease is causing her extreme weakness and deconditioning. She looks like she feels well at present. Current Visit: Yes (5) Sacral decubitus ulcer Status: Acute Assessment and plan: She apparently has been lying around a good bit to get a decubitus ulcer. Current Visit: Yes
--- NOTE | 2017-05-21 12:12 | Hospitalist Progress Note ---
Assessment and Plan (1) Congestive heart failure Status: Chronic Assessment and plan: Last echo with EF 60 Seems to be well compensated LE edema is actually better than her baseline Will change lasix to po Current Visit: Yes Qualifiers: Congestive heart failure type: diastolic (2) Hiatal hernia Status: Chronic Assessment and plan: Known to patient and family They did not know that it was so advanced Patient is not interested in a surgery consultation Current Visit: No (3) Interstitial pulmonary fibrosis Status: Chronic Assessment and plan: Pulmonary assisting Steroids, duonebs Current Visit: Yes (4) Hypertension Status: Chronic Current Visit: No (5) Physical deconditioning Status: Chronic Assessment and plan: PT/OT Current Visit: Yes (6) Sacral decubitus ulcer Status: Acute Current Visit: Yes (7) CAD (coronary artery disease) Status: Chronic Current Visit: Yes (8) Pulmonary hypertension Status: Acute Assessment and plan: Echo with severe pulmonary hypertension with PAP of 61 Current Visit: Yes Hospitalist: Subjective Interval history: No acute events overnight. Patient feels better. She reports no sob with exertion as long as she has on her oxygen. We discussed the possibility of swing bed when she is ready for discharge, she was not very excited about the idea. Exam - Constitutional Vitals: Period Temp Pulse Resp BP Sys/Merino Pulse Ox Last 24 Hr 97.1 F-98.2 F 64-107 16-20 127-159/55-88 90-99 General appearance: normal weight - Head Head exam: Present: normocephalic, atraumatic - Eye Eye exam: Present: EOMI Pupils: Present: JOSE - ENT ENT exam: Present: normal exam - Neck Neck exam: Present: normal inspection - Respiratory Respiratory exam: Present: clear to auscultation bilaterally. Absent: rhonchi, wheezes - Cardiovascular Cardiovascular exam: Present: regular rate and rhythm - GI/Abdominal GI/Abdominal exam: Present: normal bowel sounds, soft. Absent: tenderness, rebound - Extremities Exam Extremities exam: Present: normal inspection - Back Exam Back exam: Present: normal inspection - Neurological Exam Neurological exam: Present: alert, oriented X3 - Psychiatric Psychiatric exam: Present: normal affect, normal mood - Skin Skin exam: Present: warm, intact Results - Labs CBC & BMP: 05/21/17 06:12 05/21/17 06:12
[2017-05-21] MEDS: FUROSEMIDE 40 MG TABLET PO SCH (15:10)
--- NOTE | 2017-05-21 16:44 | Cardiology Progress Note ---
Assessment and Plan (1) Dyspnea Status: Acute Current Visit: Yes (2) Fatigue Status: Acute Current Visit: Yes (3) Physical deconditioning Status: Chronic Current Visit: Yes (4) Interstitial pulmonary fibrosis Status: Chronic Current Visit: Yes (5) Hiatal hernia Status: Chronic Current Visit: No (6) Hypertension Status: Chronic Current Visit: No (7) CAD (coronary artery disease) Status: Chronic Current Visit: Yes (8) Pulmonary hypertension Status: Acute Current Visit: Yes (9) S/P CABG x 3 Status: Chronic Current Visit: No Cardiology - PN: Subj Interval history: [employer] ENGINEER: Dr. Smith PCP: Dr. Murillo Summary: Patient is an 86-year-old white female with history of coronary artery disease status post CABG in 1995. She also has hypertension, hyperlipidemia, pulmonary fibrosis followed routinely by Dr. Proctor. She has chronic lower extremity edema left greater than right. She presented with complaints of weakness, lower extremity edema, shortness of breath. She was recently treated as an outpatient by her PCP for possible pneumonia with Rocephin, Z-Momo and prednisone but this did not improve her symptoms. She was admitted for shortness of breath, bilateral lower extremity edema that was refractory to outpatient management. CT scan of the chest in the emergency room revealed a large hiatal hernia. I have reviewed her echocardiogram, she has preserved systolic function, no significant valvular pathology, very mild diastolic dysfunction, but does have significant pulmonary hypertension. May 21, 2017: Symptomatically she is much improved. She feels much less short of breath. She denies any chest pain. She has persistent bilateral lower extremity edema but overall this is improved. Impression and plan: -Shortness of breath-this is multifactorial and I believe predominantly due to her pulmonary condition with pulmonary fibrosis and pulmonary hypertension. Is also contributing to her lower extremity edema. Additionally she has kyphosis and a large hiatal hernia with the entire stomach contents in her chest. -Edema-this is all to multifactorial, partially related to her pulmonary hypertension and left lower extremity vein harvest. She tells me that this is improved from her baseline. Steroids are also contributing. -Coronary artery disease-clinically stable. She has mildly elevated cardiac biomarkers, this is likely from her pulmonary hypertension. -Hiatal hernia-this is large with her entire stomach in her chest and this likely contributing to her shortness of breath. I agree with current management, no new recommendations at this time. In general I do not think she has significant congestive heart failure. She has mild diastolic dysfunction which would certainly not contribute to the degree of edema that she has. This is more from her pulmonary hypertension. Exam (Progress Note) - Constitutional Vitals: Period Temp Pulse Resp BP Sys/Merino Pulse Ox Last 24 Hr 97.1 F-98.2 F 64-112 16-20 127-159/55-88 90-99 Exam: General appearance: normal weight, no acute distress - Head Head exam: Present: normal inspection, normocephalic, atraumatic. Absent: hematoma, laceration - Eye Eye exam: Present: EOMI. Absent: conjunctival injection, nystagmus, periorbital swelling, scleral icterus, laceration to eyelids Pupils: Present: PERRL. Absent: constricted, dilated, fixed, irregular, unequal - ENT ENT exam: Present: normal exam, normal external ear exam - Neck Neck exam: Present: normal inspection. Absent: lymphadenopathy, meningismus, tenderness, thyromegaly - Respiratory Respiratory exam: Present: clear to auscultation bilaterally. Absent: accessory muscle use, chest wall tenderness - Cardiovascular Cardiovascular exam: Present: regular rate and rhythm. Absent: carotid bruit, gallop, JVD, rubs - GI/Abdominal GI/Abdominal exam: Present: normal bowel sounds, soft. Absent: distended, firm , guarding, hernia, mass, tenderness, rebound. - Extremities Exam Extremities exam: Present: 2+ bilateral lower extremity edema. Absent: calf tenderness - Back Exam Back exam: Present: Kyphosis. Absent: muscle spasm, vertebral tenderness - Neurological Exam Neurological exam: Present: alert, oriented X3, grossly intact without resting or intention tremor - Psychiatric Psychiatric exam: Present: normal affect, normal mood - Skin Skin exam: Present: normal color, warm, dry, intact. Absent: cyanosis, diaphoretic, rash, urticaria Result/EKG - Labs CBC & BMP: 05/21/17 06:12 05/21/17 06:12 Lab Results: I have reviewed the past 24 hour labs Labs: Laboratory Results - last 24 hr 05/21/17 05/21/17 05/21/17 06:12 06:12 11:46 WBC 13.9 H RBC 3.67 L Hgb 12.0 Hct 34.9 L MCV 95.1 MCH 33 MCHC 34.4 RDW 13.6 Plt Count 168 MPV 10.4 Neut % (Auto) 87.5 H Lymph % (Auto) 7.2 L [place] % (Auto) 3.4 Eos % (Auto) 0.0 Baso % (Auto) 0.1 Neut # (Auto) 12.2 H Lymph # (Auto) 1.0 L [place] # (Auto) 0.5 Eos # (Auto) 0.0 Baso # (Auto) 0.0 Immature Gran % 1.8 Nucleated RBC % 0.0 Immature Gran # 0.25 Nucleated RBCs # 0.00 Immature Plt Fraction 0.0 Sodium 141 Potassium 4.3 Chloride 102 Carbon Dioxide 32 Anion Gap 11.3 BUN 31 H Creatinine 1.20 H GFR Calculation 39 BUN/Creatinine Ratio 25.00 H Glucose 153 H Calculated Osmolality 290.3 Calcium 8.7 Magnesium 2.2 Troponin I 0.061 H D
--- NOTE | 2017-05-21 17:56 | DUMMY REPORT TO COMPLETE ORDER ---
See report scanned to EMR
[2017-05-21] MEDS: ROSUVASTATIN 10 MG TABLET PO SCH (20:40)
[2017-05-22] MEDS: methylPREDNISolone SOD SUC 40 MG/1 ML VIAL IV SCH ×3 (01:22→15:04)
[2017-05-22 05:52] LABS: Hematocrit 32.2 VOL% (35.7-47.0); Red Blood Count 3.39 MC/CUMM (3.8-5.5); White Blood Count 14.2 T/CUMM (4-12)
[2017-05-22 05:53] LABS: Basophils % 0.1 % (0.0-0.8); Immature Granulocytes Absolute 0.14 #; Lymphocytes # 0.8 10*3/uL (1.4-4.0); Lymphocytes % 5.4 % (21.3-54.2); Mean Corpuscular HGB Conc 34.2 GM/DL (32-36); Mean Corpuscular Hemoglobin 32 PG (27-34); Mean Platelet Volume 11.1 FL (9.6-12.0); Monocytes # 0.5 10*3/uL (0.11-0.8); Monocytes % 3.8 % (1.7-12.7); Neutrophils # 12.7 10*3/uL (1.4-7.4); Neutrophils % 89.7 % (38.7-73.9); Platelet Count 170 T/CUMM (130-400); Red Cell Distribution Width 13.7 % (9.3-17.3)
[2017-05-22] MEDS: POLYETHYLENE GLYCOL POWDER 17 GM PACK PO SCH ×2 (06:12→08:51)
[2017-05-22 06:28] LABS: Calcium 8.7 MG/DL (8.5-10.1); Magnesium 2.1 MG/DL (1.8-2.4); Osmolality,Calculated 292.1 MOS/KG (273-304); Potassium 3.7 MMOL/L (3.5-5.1)
[2017-05-22] MEDS: ALBUTEROL/IPRATROPIUM 3 ML NEB RESP TX SCH ×2 (08:03→18:40)
[2017-05-22] MEDS: FUROSEMIDE 40 MG TABLET PO SCH ×2 (08:27→15:04)
--- NOTE | 2017-05-22 08:34 | Pulmonology Progress Note ---
Pulmonary - PN: Subj Interval history: Patient is an 86-year-old white lady that comes in with shortness of breath and weakness and does have some interstitial lung disease. She has been started on antibiotics and steroids and is feeling better today. She says she had a good night last night. She is coughing up a lot of sputum. She feels like her breathing is doing okay. Her appetite is better. She did sit up some yesterday. She feels like she is doing better now. Exam (Progress Note) - Constitutional Vitals: Period Temp Pulse Resp BP Sys/Merino Pulse Ox Last 24 Hr 97.3 F-98.1 F 59-112 16-20 134-159/68-86 95-99 Exam: General appearance: no acute distress, over weight, she looks comfortable sitting up in bed. She looks like she is breathing comfortably. - Head Head exam: Present: normal inspection, normocephalic - Eye Eye exam: Present: EOMI. Absent: scleral icterus Pupils: Present: JOSE - ENT ENT exam: Present: normal exam - Neck Neck exam: Absent: lymphadenopathy, thyromegaly - Respiratory Respiratory exam: Present: She has good air movement with bilateral inspiratory crackles. She does not have any wheezing. Her lungs sound a little better today. - Cardiovascular Cardiovascular exam: Present: regular rate and rhythm. Absent: gallop, JVD, systolic murmur - GI/Abdominal GI/Abdominal exam: Present: normal bowel sounds, soft. Absent: organomegaly, tenderness - Extremities Exam Extremities exam: Present: other (She has no clubbing). Absent: calf tenderness , edema - Neurological Exam Neurological exam: Present: alert, oriented X3, CN II-XII intact, she is moving her extremities okay. She may have some mild dementia. - Psychiatric Psychiatric exam: Present: normal affect - Skin Skin exam: Present: warm, dry Results - Labs CBC & BMP: 05/22/17 04:43 05/22/17 04:43 Assessment and Plan (1) Hiatal hernia Status: Chronic Assessment and plan: The patient has a large hiatal hernia and will continue with antireflux measures. Current Visit: No (2) Interstitial pulmonary fibrosis Status: Chronic Assessment and plan: She had significant infiltrates last year and actually cleared a lot with steroids. She apparently has been doing fairly well but certainly does have some interstitial lung disease. Will try steroids again for little while. She certainly seems comfortable and will check another chest x-ray. Will probably need to leave her on prednisone for little while. She is talking about going to a swing bed. Current Visit: Yes (3) Hypertension Status: Chronic Assessment and plan: Her blood pressure and heart rate seems stable. Current Visit: No (4) Physical deconditioning Status: Chronic Assessment and plan: It is not clear if her lung disease is causing her extreme weakness and deconditioning. She looks like she feels well at present. She probably will need some type of rehab. Current Visit: Yes (5) Sacral decubitus ulcer Status: Acute Assessment and plan: She apparently has been lying around a good bit to get a decubitus ulcer. Current Visit: Yes
[2017-05-22] MEDS: CARVEDILOL 3.125 MG TABLET PO SCH ×2 (08:36→20:51)
[2017-05-22] MEDS: PANTOPRAZOLE 40 MG TABLET PO SCH (08:36)
[2017-05-22] MEDS: VALSARTAN 80 MG TABLET PO SCH (08:37)
[2017-05-22] MEDS: ASPIRIN EC 81 MG TABLET PO SCH (08:39)
[2017-05-22] MEDS: ENOXAPARIN 40 MG/0.4 ML SYRINGE SUBCUT SCH (08:40)
[2017-05-22] MEDS: BUDESONIDE/FORMOTEROL 160-4.5 INHALER 6 GM INH SCH ×2 (08:52→20:51)
--- NOTE | 2017-05-22 09:33 | XRay Report ---
Portable chest Date: 05/22/2017 Clinical history: Interstitial lung disease Comparison: 04/14/2016 Technique: Portable AP sitting chest Findings: The heart is minimally enlarged with prior median sternotomy. Progressive diffuse parenchymal findings with residual pleural thickening at the lung apices. Larger hiatal hernia which projects more to the right of midline. Osteopenia with degenerative changes especially in the shoulders. Prior cholecystectomy. Impression: Status post median sternotomy with chronic scarring. Progressive edema/infiltration/atelectasis with larger hiatal hernia. PROCEDURE INTERPRETED AT [facility] DEPARTMENT OF RADIOLOGY Final Report Signed by: Dr. Gabriella Clay
--- NOTE | 2017-05-22 17:44 | Hospitalist Progress Note ---
Assessment and Plan (1) Congestive heart failure Status: Chronic Assessment and plan: Last echo with EF 60 Seems to be well compensated LE edema is actually better than her baseline Will change lasix to po Current Visit: Yes Qualifiers: Congestive heart failure type: diastolic (2) Hiatal hernia Status: Chronic Assessment and plan: Known to patient and family They did not know that it was so advanced Patient is not interested in a surgery consultation Current Visit: Yes (3) Interstitial pulmonary fibrosis Status: Chronic Assessment and plan: Pulmonary assisting Steroids, duonebs Current Visit: Yes (4) Hypertension Status: Chronic Current Visit: Yes (5) Physical deconditioning Status: Chronic Assessment and plan: PT/OT Swing bed Current Visit: Yes (6) Sacral decubitus ulcer Status: Acute Current Visit: Yes (7) CAD (coronary artery disease) Status: Chronic Current Visit: Yes (8) Pulmonary hypertension Status: Chronic Assessment and plan: Echo with severe pulmonary hypertension with PAP of 61 Current Visit: Yes Hospitalist: Subjective Interval history: No acute events overnight. Her breathing is better. Working on swing bed placement. Exam - Constitutional Vitals: Period Temp Pulse Resp BP Sys/Merino Pulse Ox Last 24 Hr 97.3 F-98.1 F 59-86 16-20 120-157/61-79 96-99 General appearance: normal weight - Head Head exam: Present: normocephalic, atraumatic - Eye Eye exam: Present: EOMI Pupils: Present: JOSE - ENT ENT exam: Present: normal exam - Neck Neck exam: Present: normal inspection - Respiratory Respiratory exam: Present: clear to auscultation bilaterally - Cardiovascular Cardiovascular exam: Present: regular rate and rhythm - GI/Abdominal GI/Abdominal exam: Present: normal bowel sounds, soft. Absent: tenderness, rebound - Extremities Exam Extremities exam: Present: normal inspection - Back Exam Back exam: Present: normal inspection - Neurological Exam Neurological exam: Present: alert, oriented X3 - Psychiatric Psychiatric exam: Present: normal affect, normal mood - Skin Skin exam: Present: warm, intact Results - Labs CBC & BMP: 05/22/17 04:43 05/22/17 04:43
[2017-05-22] MEDS: ROSUVASTATIN 10 MG TABLET PO SCH (20:51)
--- NOTE | 2017-05-22 22:53 | Cardiology Progress Note ---
I, Danii Gomez RN, am scribing for, and in the presence of, Edgar Ashley MD 22:52. Assessment and Plan (1) CAD (coronary artery disease) Status: Chronic Assessment and plan: Initial assessment and plan May 22, 2017: Less short of breath with dyspnea on exertion Continue use O2 O2 would be good for her pulmonary hypertension I encouraged her to get up and ambulate some Okay with me for discharge when you say so Current Visit: Yes (2) Dyspnea Status: Acute Current Visit: Yes (3) Fatigue Status: Acute Current Visit: Yes (4) Pulmonary hypertension Status: Chronic Current Visit: Yes (5) Physical deconditioning Status: Chronic Current Visit: Yes (6) Interstitial lung disease Status: Chronic Current Visit: Yes (7) Hiatal hernia Status: Chronic Current Visit: Yes (8) Hypertension Status: Chronic Current Visit: Yes (9) S/P CABG x 3 Status: Chronic Current Visit: Yes Cardiology - PN: Subj Interval history: MATERNITY NURSE: Dr. Smith PCP: Dr. Murillo Summary: Patient is an 86-year-old white female with history of coronary artery disease status post CABG in 1995. She also has hypertension, hyperlipidemia, pulmonary fibrosis followed routinely by Dr. Proctor. She has chronic lower extremity edema left greater than right. She presented with complaints of weakness, lower extremity edema, shortness of breath. She was recently treated as an outpatient by her PCP for possible pneumonia with Rocephin, Z-Momo and prednisone but this did not improve her symptoms. She was admitted for shortness of breath, bilateral lower extremity edema that was refractory to outpatient management. CT scan of the chest in the emergency room revealed a large hiatal hernia. Echocardiogram with preserved systolic function, no significant valvular pathology, very mild diastolic dysfunction, but does have significant pulmonary hypertension. May 22, 2017: Ms. Renee is seen sitting up in chair with oxygen use via nasal cannula. She is very spry and pleasant this morning. She denies any chest pain or palpitations. She tells me she continues to get short of breath with activity, but that it is much improved from admission. She has some edema in her lower extremities, she says they are usually more swollen than this at home. Physical therapy was working with her as I was seeing her. Review of systems: Cardiovascular: Denies chest pain. Respiratory: Dyspnea on exertion, oxygen in use via nasal cannula. Neurological: Awake, alert, and oriented. Exam (Progress Note) - Constitutional Vitals: Period Temp Pulse Resp BP Sys/Merino Pulse Ox Last 24 Hr 97.3 F-98.1 F 59-112 16-20 134-157/68-86 96-99 Exam: General appearance: normal weight, no acute distress - Head Head exam: Present: normal inspection, normocephalic, atraumatic. Absent: hematoma, laceration - Eye Eye exam: Present: EOMI. Absent: conjunctival injection, nystagmus, periorbital swelling, scleral icterus, laceration to eyelids Pupils: Present: PERRL. Absent: constricted, dilated, fixed, irregular, unequal - ENT ENT exam: Present: normal exam, normal external ear exam - Neck Neck exam: Present: normal inspection. Absent: lymphadenopathy, meningismus, tenderness, thyromegaly - Respiratory Respiratory exam: Present: clear to auscultation bilaterally. Absent: accessory muscle use, chest wall tenderness - Cardiovascular Cardiovascular exam: Present: regular rate and rhythm. Absent: carotid bruit, gallop, JVD, rubs - GI/Abdominal GI/Abdominal exam: Present: normal bowel sounds, soft. Absent: distended, firm , guarding, hernia, mass, tenderness, rebound. - Extremities Exam Extremities exam: Present: 2+ bilateral lower extremity edema. Absent: calf tenderness - Back Exam Back exam: Present: Kyphosis. Absent: muscle spasm, vertebral tenderness - Neurological Exam Neurological exam: Present: alert, oriented X3, grossly intact without resting or intention tremor - Psychiatric Psychiatric exam: Present: normal affect, normal mood - Skin Skin exam: Present: normal color, warm, dry, intact. Absent: cyanosis, diaphoretic, rash, urticaria Result/EKG - Labs CBC & BMP: 05/22/17 04:43 05/22/17 04:43 Lab Results: I have reviewed the past 24 hour labs Labs: Laboratory Results - last 24 hr 05/21/17 05/22/17 05/22/17 11:46 04:43 04:43 WBC 14.2 H RBC 3.39 L Hgb 11.0 L Hct 32.2 L MCV 95.0 MCH 32 MCHC 34.2 RDW 13.7 Plt Count 170 MPV 11.1 Neut % (Auto) 89.7 H Lymph % (Auto) 5.4 L [place] % (Auto) 3.8 Eos % (Auto) 0.0 Baso % (Auto) 0.1 Neut # (Auto) 12.7 H Lymph # (Auto) 0.8 L [place] # (Auto) 0.5 Eos # (Auto) 0.0 Baso # (Auto) 0.0 Immature Gran % 1.0 Nucleated RBC % 0.0 Immature Gran # 0.14 Nucleated RBCs # 0.00 Immature Plt Fraction 0.0 Sodium 142 Potassium 3.7 Chloride 102 Carbon Dioxide 34 H Anion Gap 9.7 BUN 35 H Creatinine 1.20 H GFR Calculation 39 BUN/Creatinine Ratio 29.00 H Glucose 133 H Calculated Osmolality 292.1 Calcium 8.7 Magnesium 2.1 Troponin I 0.061 H D - Diagnostic Findings Procedure: Chest x-ray: report reviewed by me - EKG EKG results: interpreted by me EKG shows: sinus rhythm Gabi Ledesma Dale, MD, personally performed the services described in this documentation, ascribed by Danii Gomez RN in my presence, and it is both accurate and complete 252 .
[2017-05-23] MEDS: methylPREDNISolone SOD SUC 40 MG/1 ML VIAL IV SCH ×2 (00:05→08:00)
[2017-05-23 05:29] LABS: Basophils % 0.1 % (0.0-0.8); Hematocrit 32.3 VOL% (35.7-47.0); Hemoglobin 11.1 GM/DL (12.0-16.0); Immature Granulocytes Absolute 0.14 #; Lymphocytes # 0.6 10*3/uL (1.4-4.0); Lymphocytes % 4.7 % (21.3-54.2); Mean Corpuscular HGB Conc 34.4 GM/DL (32-36); Mean Corpuscular Hemoglobin 33 PG (27-34); Mean Corpuscular Volume 95.8 FL (87-102); Mean Platelet Volume 10.7 FL (9.6-12.0); Monocytes # 0.5 10*3/uL (0.11-0.8); Monocytes % 3.7 % (1.7-12.7); Neutrophils # 12.1 10*3/uL (1.4-7.4); Neutrophils % 90.5 % (38.7-73.9); Platelet Count 164 T/CUMM (130-400); Red Blood Count 3.37 MC/CUMM (3.8-5.5); Red Cell Distribution Width 13.8 % (9.3-17.3); White Blood Count 13.4 T/CUMM (4-12)
[2017-05-23 05:52] LABS: Calcium 8.7 MG/DL (8.5-10.1); Potassium 3.6 MMOL/L (3.5-5.1)
[2017-05-23 06:26] LABS: Band Neutrophils 2 % (0-10); Lymphocytes 6 % (20-55); Segmented Neutrophils 89 % (50-85); Total Cells Counted 100
[2017-05-23 06:27] LABS: Hypochromasia 1+; Microcytosis Slight
[2017-05-23] MEDS: ALBUTEROL/IPRATROPIUM 3 ML NEB RESP TX SCH (07:13)
[2017-05-23] MEDS: FUROSEMIDE 40 MG TABLET PO SCH (08:00)
[2017-05-23] MEDS: VALSARTAN 80 MG TABLET PO SCH (08:00)
[2017-05-23] MEDS: ASPIRIN EC 81 MG TABLET PO SCH (08:01)
[2017-05-23] MEDS: CARVEDILOL 3.125 MG TABLET PO SCH (08:01)
[2017-05-23] MEDS: BUDESONIDE/FORMOTEROL 160-4.5 INHALER 6 GM INH SCH (08:01)
[2017-05-23] MEDS: ENOXAPARIN 40 MG/0.4 ML SYRINGE SUBCUT SCH (08:01)
[2017-05-23] MEDS: POLYETHYLENE GLYCOL POWDER 17 GM PACK PO SCH (08:01)
[2017-05-23] MEDS: PANTOPRAZOLE 40 MG TABLET PO SCH (08:01)
--- NOTE | 2017-05-23 10:36 | Discharge Summary ---
Hospital Course - Hospital Course Hospital Course: 86 year old female was admitted with physical deconditioning and decreased physical activity for 2 weeks prior to admissio. Patient normally walks around, takes herself to the bathroom, and has minimal assistance with her ADL's. Within the past two weeks, patient has not been as active due to weakness and shortness of breath and has required her to keep her bedtime O2 on throughout the entire day. Patient denies chest pain, fevers, n/v/d, urinary or bowel issues, or change in coughing but does admit to shortness of breath, chronic cough, and lower back pain. Patient saw her PCP Dr. Murillo on and he thought she had pneumonia and was given Rocephin IM, Rx for Zpack, and Prednisone but she has had no significant improvement. In the ER she received a CT chest that showed large hiatal hernia with the stomach being above the diaphragm and impending on the right atrium and interstitial fibrosis. She is followed by Dr. Proctor for her pulmonary fibrosis and is scheduled to see him on May 30. She is followed by Dr. Mark for her CHF and CABG in 1995. She last saw Dr. Mark on Apr 26 with no change in current treatment regimen. Her last echocardiogram was in 2016 which showed a EF of 60%, mild LVH, Grade I diastolic dysfunction, and TVR. She was admitted to the hospitalist service. She was treated for COPD exacerbation as well as severe pulmonary hypertension. Cardiology was following. She does have chronic respiratory failure and is on home oxygen, which was continued. Her medical treatment was optimized. Shortness of breath has much improved. Received physical therapy. She now has a place at swing bed but she is agreeable to go. She being discharged in improved and stable condition. Total discharge time 35 minutes. - Time spent with patient Time with patient DS: Greater than 30 minutes Diagnosis - Discharge Diagnosis (1) Acute dyspnea Status: Resolved Specialty Discharge - Follow Up or Referrals Discharge Plan - Discharge Data Disposition: Swing Bed, [facility] Condition at Discharge: Stable Discharge Diet: low salt diet Activity: as per physical therapy, increase activity as tolerated Weight Bearing at Discharge: full weight bearing Driving: no restrictions - Discharge Medications New guaiFENesin LIQUID [Robitussin] 15 ml PO Q4H PRN #1 PRN Reason: Cough HYDROcodone/ACETAMIN 5-325 [[place] 5-325] 1 tablet PO Q4H PRN #30 tablet PRN Reason: Pain Mild (1-3) Zinc Oxide 16% Paste [Linda's Butt Paste] 1 applic TOP PRN PRN applic PRN Reason: Diaper Rash Furosemide Tab [Lasix Tab] 40 mg PO BID DIURETIC #60 tablet Polyethylene Glycol Powder [Miralax] 17 gm PO DAILY Continue Budesonide/Formoterol 160-4.5 [Symbicort 160-4.5] 1 puff INH BID Aspirin [Ecotrin] 81 mg PO QAM Carvedilol [Coreg] 3.125 mg PO BID Omeprazole 40 mg PO QAM Rosuvastatin Calcium 10 mg PO BEDTIME predniSONE TAB [PredniSONE] 20 mg PO QAM Valsartan 40 mg PO QAM Ipratropium/Albuterol Inhaler [Combivent Respimat Inhaler] 2 puff INH BID Ipratropium/Albuterol Sulfate [Iprat-Albut 0.5-3(2.5) mg/3 ml] 3 ml INH QID PRN PRN Reason: Shortness Of Breath/Wheezing Multivitamin (Centrum) [Centrum Tab] 1 tablet PO BEDTIME Polyethylene Glycol Powder [Miralax] 17 gm PO QAM Discontinued predniSONE TAB [PredniSONE] 10 mg PO QAM HYDROcodone/ACETAMIN 5-325 [[place] 5-325] 1 tablet PO Q4H PRN PRN Reason: Pain Furosemide Tab [Lasix Tab] 40 mg PO QAM Cefdinir [Cefdinir] 300 mg PO Q12H - Follow Up or Referral - Forms/Instructions Instructions: Heart Failure (DC), Dyspnea (GEN) Exam - Constitutional Vitals: Period Temp Pulse Resp BP Sys/Merino Pulse Ox Last 24 Hr 97.2 F-98 F 62-95 16-20 120-155/60-71 96-99 Exam: General: No Acute Distress HEENT: Normocephalic, atraumatic, Extra ocular movements intact Neck: Supple, No JVD Chest: Decreased breath sounds b/L CV: S1 + S2 audible without murmur, gallop or rub Abd: soft, NT, Non-distended, BS + Ext: No edema Skin: No purpura, bruising or rash Rheumatologic: No Joint deformities Neurologic: Awake and alert Discharge Results Labs on day of discharge: Labs from last 24 hours 05/23/17 05/23/17 04:50 04:50 WBC 13.4 H RBC 3.37 L Hgb 11.1 L Hct 32.3 L MCV 95.8 MCH 33 MCHC 34.4 RDW 13.8 Plt Count 164 MPV 10.7 Neut % (Auto) 90.5 H Lymph % (Auto) 4.7 L [place] % (Auto) 3.7 Eos % (Auto) 0.0 Baso % (Auto) 0.1 Neut # (Auto) 12.1 H Lymph # (Auto) 0.6 L [place] # (Auto) 0.5 Eos # (Auto) 0.0 Baso # (Auto) 0.0 Total Counted 100 Immature Gran % 1.0 Nucleated RBC % 0.0 Immature Gran # 0.14 Segmented Neutrophils 89 H Band Neutrophils 2 Lymphocytes 6 L Monocytes 3 Nucleated RBCs # 0.00 Immature Plt Fraction 0.0 Hypochromasia 1+ Microcytosis Slight Morphology Comment Sodium 143 Potassium 3.6 Chloride 102 Carbon Dioxide 35 H Anion Gap 9.6 BUN 44 H Creatinine 1.30 H GFR Calculation 36 BUN/Creatinine Ratio 33.00 H Glucose 157 H Calculated Osmolality 298.0 Calcium 8.7 Magnesium 2.0 DS: Provider Date of admission: 05/19/17 22:02 Primary care physician: . No PCP Attending physician on admission: Ridge Moreno MD Consults: 05/19/17 23:47 Consult to Case Mgmt/Social Srvs [CONS] Routine Reason for Case Mgmt/Social Srvs: Discharge Planning Consult to Occupational Therapy [CONS] Routine Reason for Occupational Therapy: Evaluate and Treat Consult to Physical Therapy [CONS] Routine Reason for Physical Therapy: Evaluate and Treat Consult to Physician [CONS] Routine Comment: shortness of breath Consulting Provider: Abena Barrera Person Notified: MD metzger Consult Notification Comment: called and spoke with Dr Barrera at 0822 on 05/20/2017 Consult to Physician [CONS] Routine Comment: shortness of breath; hx of pul fibrosis Consulting Provider: Pradeep Proctor Person Notified: MD metzger Date Notified: 05/22/17 Time Notified: 07:[address]ound [address] [facility] [CONS] Routine Reason for Wound Care: Wound Care Management Consult Comment: sacral breakdown 05/22/17 08:42 Consult to Case Mgmt/Social Srvs [CONS] Routine Reason for Case Mgmt/Social Srvs: Swingbed/SNF/Intermediate Consult Comment: swing bed? Discharging clinician: Nola Pa MD
[2017-05-23 12:04] VITALS: BP 130/63
--- NOTE | 2017-05-23 12:52 | Pulmonology Progress Note ---
Pulmonary - PN: Subj Interval history: Patient is an 86-year-old white lady that comes in with shortness of breath and weakness and does have some interstitial lung disease. She has been started on antibiotics and steroids and is feeling better today. She says she had a very good night rest much better. He is eating better and feels like her breathing is doing well. She feels like she is breathing a lot better than she was. Her chest x-ray looks fairly stable also. Exam (Progress Note) - Constitutional Vitals: Period Temp Pulse Resp BP Sys/Merino Pulse Ox Last 24 Hr 97.2 F-98.0 F 62-98 16-20 123-155/60-71 96-99 Exam: General appearance: no acute distress, over weight, she looks comfortable sitting up in bed. She looks like she is breathing comfortably. Overall she looks improved. - Head Head exam: Present: normal inspection, normocephalic - Eye Eye exam: Present: EOMI. Absent: scleral icterus Pupils: Present: JOSE - ENT ENT exam: Present: normal exam - Neck Neck exam: Absent: lymphadenopathy, thyromegaly - Respiratory Respiratory exam: Present: She has good air movement with bilateral inspiratory crackles. She is moving air well and her lungs do sound better. - Cardiovascular Cardiovascular exam: Present: regular rate and rhythm. Absent: gallop, JVD, systolic murmur - GI/Abdominal GI/Abdominal exam: Present: normal bowel sounds, soft. Absent: organomegaly, tenderness - Extremities Exam Extremities exam: Present: other (She has no clubbing). Absent: calf tenderness , edema - Neurological Exam Neurological exam: Present: alert, oriented X3, CN II-XII intact, she is moving her extremities okay. She may have some mild dementia. - Psychiatric Psychiatric exam: Present: normal affect - Skin Skin exam: Present: warm, dry Results - Labs CBC & BMP: 05/23/17 04:50 05/23/17 04:50 - Diagnostic Findings Procedure: Chest x-ray: image reviewed by me, report reviewed by me (Chest x- ray still shows some mild interstitial lung disease but no consolidation now. Her x-ray looks reasonably stable at present.) Assessment and Plan (1) Hiatal hernia Status: Chronic Assessment and plan: The patient has a large hiatal hernia and will continue with antireflux measures. Current Visit: Yes (2) Interstitial pulmonary fibrosis Status: Chronic Assessment and plan: She had significant infiltrates last year and actually cleared a lot with steroids. She apparently has been doing fairly well but certainly does have some interstitial lung disease. She looks like she is doing better and her chest x-ray stable. She can taper steroids as an outpatient. Current Visit: Yes (3) Hypertension Status: Chronic Assessment and plan: Her blood pressure and heart rate seems stable. Current Visit: Yes (4) Physical deconditioning Status: Chronic Assessment and plan: It is not clear if her lung disease is causing her extreme weakness and deconditioning. She looks like she feels well at present. She probably will need some type of rehab. Current Visit: Yes (5) Sacral decubitus ulcer Status: Acute Assessment and plan: She is not having any soreness now. Current Visit: Yes Specialty Discharge - Follow Up or Referrals
--- NOTE | 2017-05-23 21:54 | Cardiology Progress Note ---
I, Danii Gomez RN, am scribing for, and in the presence of, Edgar Ashley MD 21:53. Assessment and Plan (1) CAD (coronary artery disease) Status: Chronic Assessment and plan: Initial assessment and plan May 22, 2017: Less short of breath with dyspnea on exertion Continue use O2 O2 would be good for her pulmonary hypertension I encouraged her to get up and ambulate some Okay with me for discharge when you say so Assessment and plan May 23, 2017: Eating breakfast when I talk to her Can ambulate slightly better with less shortness breath She uses home O2, so she will continue when she leaves She will be going to swing bed our rehabilitation to improve strength and mobility She will keep her follow-up with her midlevel provider as is scheduled or sooner if needed. (2) Dyspnea Status: Acute (3) Fatigue Status: Acute (4) Pulmonary hypertension Status: Chronic (5) Physical deconditioning Status: Chronic (6) Interstitial lung disease Status: Chronic (7) Hiatal hernia Status: Chronic (8) Hypertension Status: Chronic (9) S/P CABG x 3 Status: Chronic Cardiology - PN: Subj Interval history: CONTINUOUS PROCESS ROTARY DRUM TANNER: Dr. Smith PCP: Dr. Murillo Summary: Patient is an 86-year-old white female with history of coronary artery disease status post CABG in 1995. She also has hypertension, hyperlipidemia, pulmonary fibrosis followed routinely by Dr. Proctor. She has chronic lower extremity edema left greater than right. She presented with complaints of weakness, lower extremity edema, shortness of breath. She was recently treated as an outpatient by her PCP for possible pneumonia with Rocephin, Z-Momo and prednisone but this did not improve her symptoms. She was admitted for shortness of breath, bilateral lower extremity edema that was refractory to outpatient management. CT scan of the chest in the emergency room revealed a large hiatal hernia. Echocardiogram with preserved systolic function, no significant valvular pathology, very mild diastolic dysfunction, but does have significant pulmonary hypertension. May 22, 2017: Ms. Renee is seen sitting up in chair with oxygen use via nasal cannula. She is very spry and pleasant this morning. She denies any chest pain or palpitations. She tells me she continues to get short of breath with activity, but that it is much improved from admission. She has some edema in her lower extremities, she says they are usually more swollen than this at home. Physical therapy was working with her as I was seeing her. May 23, 2017: Ms. Renee seen resting in bed no acute distress. She denies any chest pain, shortness of breath, palpitations. She says she did get short of breath after her bath this morning, but feels much better now. Her Lasix has been changed to 40 mg p.o. twice daily. Review of systems: Cardiovascular: Denies chest pain. Respiratory: Dyspnea on exertion, oxygen in use via nasal cannula. Neurological: Awake, alert, and oriented. Exam (Progress Note) - Constitutional Vitals: Period Temp Pulse Resp BP Sys/Merino Pulse Ox Last 24 Hr 97.2 F-98 F 62-95 16-20 120-155/60-71 96-99 Exam: General appearance: normal weight, no acute distress - Head Head exam: Present: normal inspection, normocephalic, atraumatic. Absent: hematoma, laceration - Eye Eye exam: Present: EOMI. Absent: conjunctival injection, nystagmus, periorbital swelling, scleral icterus, laceration to eyelids Pupils: Present: PERRL. Absent: constricted, dilated, fixed, irregular, unequal - ENT ENT exam: Present: normal exam, normal external ear exam - Neck Neck exam: Present: normal inspection. Absent: lymphadenopathy, meningismus, tenderness, thyromegaly - Respiratory Respiratory exam: Present: clear to auscultation bilaterally. Absent: accessory muscle use, chest wall tenderness - Cardiovascular Cardiovascular exam: Present: regular rate and rhythm. Absent: carotid bruit, gallop, JVD, rubs - GI/Abdominal GI/Abdominal exam: Present: normal bowel sounds, soft. Absent: distended, firm , guarding, hernia, mass, tenderness, rebound. - Extremities Exam Extremities exam: Present: 2+ bilateral lower extremity edema. Absent: calf tenderness - Back Exam Back exam: Absent: muscle spasm, vertebral tenderness - Neurological Exam Neurological exam: Present: alert, oriented X3, grossly intact without resting or intention tremor - Psychiatric Psychiatric exam: Present: normal affect, normal mood - Skin Skin exam: Present: normal color, warm, dry, intact. Absent: cyanosis, diaphoretic, rash, urticaria Result/EKG - Labs CBC & BMP: 05/23/17 04:50 05/23/17 04:50 Lab Results: I have reviewed the past 24 hour labs Labs: Laboratory Results - last 24 hr 05/23/17 05/23/17 04:50 04:50 WBC 13.4 H RBC 3.37 L Hgb 11.1 L Hct 32.3 L MCV 95.8 MCH 33 MCHC 34.4 RDW 13.8 Plt Count 164 MPV 10.7 Neut % (Auto) 90.5 H Lymph % (Auto) 4.7 L [place] % (Auto) 3.7 Eos % (Auto) 0.0 Baso % (Auto) 0.1 Neut # (Auto) 12.1 H Lymph # (Auto) 0.6 L [place] # (Auto) 0.5 Eos # (Auto) 0.0 Baso # (Auto) 0.0 Total Counted 100 Immature Gran % 1.0 Nucleated RBC % 0.0 Immature Gran # 0.14 Segmented Neutrophils 89 H Band Neutrophils 2 Lymphocytes 6 L Monocytes 3 Nucleated RBCs # 0.00 Immature Plt Fraction 0.0 Hypochromasia 1+ Microcytosis Slight Morphology Comment Sodium 143 Potassium 3.6 Chloride 102 Carbon Dioxide 35 H Anion Gap 9.6 BUN 44 H Creatinine 1.30 H GFR Calculation 36 BUN/Creatinine Ratio 33.00 H Glucose 157 H Calculated Osmolality 298.0 Calcium 8.7 Magnesium 2.0 - Diagnostic Findings Procedure: Chest x-ray: report reviewed by me - EKG EKG results: interpreted by me EKG shows: sinus rhythm IGabi Dale, MD, personally performed the services described in this documentation, ascribed by Danii Gomez RN in my presence, and it is both accurate and complete .
== END 2017-05-23 14:50 | disposition swing bed (61) | DRG 197 ==
LOC: EDBD → EDUNIT# → N.ED 18:10 → SUATTDRO 22:02 → N.EDINP 22:02 → N.5E 23:05
PROVIDERS: ADMIT Internal Medicine; ATTEND Internal Medicine

== ENCOUNTER 2017-05-27 10:40 | Inpatient (IN) ==
[2017-05-27] MEDS ORDERED: methylPREDNISolone SOD SUC 125 MG/2 ML VIAL IV STA (11:08)
[2017-05-27] MEDS ORDERED: cefTRIAXone 1,000 MG in SODIUM CHLORIDE 0.9% 100 ML IV STA (11:08)
--- NOTE | 2017-05-27 11:13 | Emergency Department Note ---
Arrival - Arrival Chief Complaint: Shortness of Breath Stated Complaint: short of breath ED Nursing Triage Note: has developed a cough over the couple of days discharged on levaquin for uti and tx of pneumonia on the monday and sent to [facility] for swing bed placement feels short of breath and has audible wheezing denies any fever Mode of Arrival: Stretcher Limitations: No Limitations Source: Patient Time Seen by Provider: 05/27/17 11:08 - History of Present Illness HPI Narrative: This 86-year-old white female presents with complaints of increasing shortness of breath and productive cough for the last 4 days since discharge from the hospital and transferred to the swing bed. Today she had significant increase in respiratory symptoms and decrement and are already low O2 saturation and was referred here for further evaluation. She does not relate any chest pain, nausea, vomiting, or diaphoresis associated with this complaint. The patient states firmly she feels no better than the day she left here with her primary complaint being that of respiratory symptoms. Of note, the patient does have advanced pulmonary fibrosis. Currently she is in no acute medical distress. Onset (ago): day(s) (4 days since onset of symptoms) Allergies/Adverse Reactions: Allergies Allergy/AdvReac Type Severity Reaction Status Date / Time Iodinated Contrast Media - Allergy Unknown Unknown/Unable Verified 04/10/16 15: 41 Oral and to obtain [Iodinated Contrast Media - IV Dye] iodine Allergy Unknown Unknown/Unable Verified 04/10/16 15:41 to obtain nystatin Allergy Verified 05/25/17 18:20 nystatin swish & swallow Allergy Uncoded 05/25/17 18:20 Home Medications: Home Medications Medication Instructions Recorded Confirmed Type Aspirin [Ecotrin] 81 mg PO QAM 12/21/15 05/27/17 History Budesonide/Formoterol 160-4.5 1 puff INH BID 12/21/15 05/27/17 History [Symbicort 160-4.5] Carvedilol [Coreg] 3.125 mg PO BID 12/21/15 05/27/17 History Omeprazole 40 mg PO QAM 04/10/16 05/27/17 History Ipratropium/Albuterol Sulfate 3 ml INH Q4H PRN 07/23/16 05/27/17 History [Iprat-Albut 0.5-3(2.5) mg/3 ml] Multivitamin (Centrum) [Centrum 1 tablet PO BEDTIME 07/23/16 05/27/17 History Tab] Polyethylene Glycol Powder 17 gm PO QAM 05/19/17 05/27/17 History [Miralax] Rosuvastatin Calcium 10 mg PO BEDTIME 05/19/17 05/27/17 History Valsartan 40 mg PO QAM 05/19/17 05/27/17 History predniSONE TAB [PredniSONE] 20 mg PO QAM 05/19/17 05/27/17 History Furosemide Tab [Lasix Tab] 40 mg PO BID DIURETIC #60 tablet 05/23/17 05/27/17 Rx HYDROcodone/ACETAMIN 5-325 [[place] 1 tablet PO Q4H PRN #30 tablet 05/23/17 Rx 5-325] Zinc Oxide 16% Paste [Linda's 1 applic TOP PRN PRN applic 05/23/17 Rx Butt Paste] guaiFENesin LIQUID [Robitussin] 15 ml PO Q4H PRN #1 05/23/17 05/27/17 Rx Levofloxacin Tab [Levaquin Tab] 500 mg PO [id number] 05/27/17 05/27/17 History Pantoprazole Tab [Protonix Tab] 40 mg PO DAILY 05/27/17 05/27/17 History Review of System - Review of System 12 point system: reviewed and no additional remarkable complaints except as stated - Review of System Constitutional: Present: as per HPI Respiratory: Present: as per HPI Cardiovascular: Present: as per HPI Gastrointestinal: Present: as per HPI Medical,Surgical,& Family Hx - Medical History Cardio: History of: CHF, CAD, Hypertension, Cardiovascular Problems No history of: [place] Endocrine: History of: Dyslipidemia Rheumatology: History of;: Rheumatoid Arthritis Respiratory: History of: Asthma, Bronchitis, COPD, Respiratory Problems (pul fibrosis) Renal: History of: Renal Failure, Renal Problems Gastrointestinal: History of: GERD, GI Problems (large hiatal hernia with aspiration) Musculoskeletal: History of: Musculoskeletal Problems (left shoulder pain) Hematology: History of: Anemia - Surgical History Cardiac Surgeries: Sugical HX of: Cardiac Surgery (CABG X3 1995) Thoracic Surgeries: Patient denies;: Organ Transplant, Lobectomy HEENT Surgeries: Surgical HX of: Eye Surgery, Tonsilectomy & Adenoidectomy Abdominal Surgeries: Surgical HX of: Appendectomy, Cholecystectomy Reproductive Surgeries: Surgical HX of;: Section Patient denies;: Genitourinary Surgery Orthopedic Surgeries: Surgical HX of;: Orthopedic Surgery (shoulder surgery), Total Knee Replacement (left knee X2) - Family History Family History: Reports;: Family Cancer (father-stomach), Family Heart Disease ( CHF-mom), Family Hypertension - Social History Smoking Status: Never smoker Exam Physical Examination: GENERAL: Well developed, well nourished elderly white female in no acute distress. HEENT: Normocephalic. No trauma. Moist mucous membranes. EOMI. PERRLA. ENT NML NECK: Supple. No adenopathy. CARDIAC: Regular. No murmurs. Heart rate 88 CHEST: Diffuse Velcro rales and occasional expiratory wheeze. No respiratory distress. O2 sat 91% ABDOMEN: Soft. Nontender. Active bowel sounds. EXTREMITIES: No trauma. Normal ROM. No pedal edema. SKIN: No diaphoresis. No rash. NEURO: Alert. Neuro intact no focal deficits. Vital Signs: Vital Signs Temperature 97.6 F 05/27/17 10:41 Pulse Rate 96 H 05/27/17 12:32 Respiratory Rate 20 05/27/17 12:32 Blood Pressure 138/86 05/27/17 10:41 O2 Sat by Pulse Oximetry 100 05/27/17 12:32 Course - Reevaluation(s) Reevaluation #1: Discussed with the patient that probably best to readmit for further evaluation and treatment of her fibrosis and probable underlying infection given her progressive hypoxia and resting tachycardia along with her diagnostic findings. - Consultations Consultation #1: Discussed with hospitalist service who will admit for further evaluation treatment. Results - Labs CBC & BMP: 05/27/17 12:20 05/27/17 12:20 Labs: I have reviewed the laboratory noted the elevated white blood cell count, low potassium, and bump in troponins. - Impressions EKG: Sinus tachycardia at 105 with normal MT interval and QRS duration with frequent PAC. Left ventricular hypertrophy with possible old lateral wall infarct and inferior infarct. Nonspecific ST changes. No acute injury pattern noted. - Diagnostic Findings Procedure: Chest x-ray: image reviewed by me, report reviewed by me ( Cardiomegaly with no change in chronic fibrotic appearance) Disposition Clinical Impression: Progressive pulmonary fibrosis, Abnormal enzymes, Possible superimposed pneumonia Case discussed with: patient, patient's family Disposition: Still a Patient Condition: Guarded Time of Disposition: 13:24
[2017-05-27] MEDS: ALBUTEROL 2.5 MG/3 ML NEB RESP TX SCH ×3 (11:30→11:32)
--- NOTE | 2017-05-27 11:38 | XRay Report ---
History: Shortness of breath Date: 05/27/2017 Study: Chest x-ray AP portable Comparison exam: May 22, 2017 There is continued cardiomegaly. The mediastinal contours are unchanged. The pulmonary vasculature is not grossly engorged. There is strandy and hazy and reticular parenchymal disease scattered in both lungs, grossly similar to the previous study. There is no obvious new or worsening infiltrate. There is no gross pleural effusion. Osseous structures are similar. There is osteopenia and continued degenerative change of the spine and shoulders Impression: Continued bilateral pulmonary infiltrate which is chronic or largely chronic. There is no obvious new or worsening infiltrate. Continued cardiomegaly. Overall unchanged PROCEDURE INTERPRETED AT [facility] DEPARTMENT OF RADIOLOGY Final Report Signed by: Dr. Tricia Mcclain
[2017-05-27] MEDS ORDERED: ALBUTEROL 2.5 MG/3 ML NEB RESP TX ONE (12:12)
--- NOTE | 2017-05-27 12:31 | Order Completion Report ---
See report scanned to EMR
[2017-05-27 12:32] LABS: Basophils % 0.1 % (0.0-0.8); Eosinophils # 0.1 10*3/uL (0.0-0.87); Eosinophils % 0.9 % (0.00-10.9); Hematocrit 36.9 VOL% (35.7-47.0); Hemoglobin 12.8 GM/DL (12.0-16.0); Immature Granulocytes % 1.2 %; Immature Granulocytes Absolute 0.16 #; Mean Corpuscular HGB Conc 34.7 GM/DL (32-36); Mean Corpuscular Hemoglobin 33 PG (27-34); Mean Corpuscular Volume 94.9 FL (87-102); Mean Platelet Volume 10.8 FL (9.6-12.0); Monocytes # 0.9 10*3/uL (0.11-0.8); Monocytes % 6.4 % (1.7-12.7); Neutrophils # 11.5 10*3/uL (1.4-7.4); Neutrophils % 84.4 % (38.7-73.9); Platelet Count 172 T/CUMM (130-400); Red Blood Count 3.89 MC/CUMM (3.8-5.5); Red Cell Distribution Width 13.6 % (9.3-17.3); White Blood Count 13.6 T/CUMM (4-12)
[2017-05-27 12:41] LABS: PT Patient Result 10.1 SECS; Partial Thromboplastin Time 22.5 SECS (0-40)
[2017-05-27] MEDS ORDERED: cefTRIAXone 1,000 MG VIAL ONE (12:58)
[2017-05-27] MEDS ORDERED: methylPREDNISolone SOD SUC 125 MG/2 ML VIAL ONE (12:58)
[2017-05-27 13:04] LABS: Alanine Aminotransferase 51 U/L (13-56); Albumin 2.7 G/DL (3.4-5.0); Alkaline Phosphatase 77 U/L (45-117); Aspartate Amino Transferase 29 U/L (0-37); Blood Urea Nitrogen 37 MG/DL (7-18); Calcium 8.6 MG/DL (8.5-10.1); Glucose 83 MG/DL (74-106); Potassium 3.3 MMOL/L (3.5-5.1); Sodium 136 MMOL/L (136-145); Total Protein 6.1 G/DL (6.4-8.3)
[2017-05-27 13:09] LABS: Troponin I Only 0.086 NG/ML (0.00-0.045)
[2017-05-27 13:19] LABS: Apearance,Urine CLEAR (Clear); Bilirubin,Urine Negative (Negative); Blood, Urine Small mg/dL (Negative); Glucose,Urine (UA) Negative (Negative); Ketones,Urine Negative (Negative); Mucus,Urine Occasional /LPF (Occasional); Nitrite,Urine Negative (Negative); Protein,Urine Negative; RBC,Urine 1 /HPF (0-4); Urine Color Straw (Yellow); Urine Specific Gravity 1.005 (1.001-1.035); Urine Urobilinogen < 2.0 EU/DL (0.2-1.0); WBC,Urine 3 /HPF (0-6)
[2017-05-27] MEDS ORDERED: POTASSIUM BICARB EFFERVESCENT 25 MEQ TABLET PO ONE (13:25)
[2017-05-27 13:27] LABS: Barbiturates Screen,Urine Negative (Negative); Benzodiazepines Screen,Urine Negative (Negative); Cannabinoid Screen,Urine Negative (Negative); Opiate Screen,Urine Negative (Negative); Phencyclidine Screen,Urine Negative (Negative)
--- NOTE | 2017-05-27 14:22 | Hospitalist History & Physical ---
Assessment and Plan - Time spent with patient Time spent with patient: Greater than 30 minutes (1) Dyspnea Status: Acute Assessment and plan: 86-year-old white female who presents 4 days status post discharge for worsening shortness of breath while at rehab. Diffuse rhonchi and rales throughout with decreased breath sounds. Patient has been admitted [facility] with breathing treatments, IV steroids and pulmonology consultation. Patient has requested to go home hospice. We will consult case management for hospice care arrangements. Current Visit: No (2) Acute exacerbation of congestive heart failure Status: Acute Assessment and plan: BNP of 104. Patient does have severe edema of the bilateral lower extremities that is painful to palpation. IV diuresis. Current Visit: No (3) Hypokalemia Status: Acute Assessment and plan: Potassium 3.3 on admission. Potassium replacement per protocol. Current Visit: No (4) Hypertension Status: Chronic Assessment and plan: Currently well controlled. Continue home medications. Current Visit: No (5) Interstitial pulmonary fibrosis Status: Chronic Assessment and plan: 3+ year history of interstitial pulmonary fibrosis. Continue breathing treatments and antibiotics. Dr. Proctor is her primary director acute. Pulmonology has been consulted to follow along. Current Visit: No (6) Physical deconditioning Status: Chronic Current Visit: No (7) S/P CABG x 3 Status: Chronic Current Visit: No (8) Debility Status: Acute Current Visit: No (9) Fatigue Status: Acute Current Visit: No History of Present Illness Chief complaint: SOB History of present illness: Ms. Renee is a 86 year old female with an extensive past medical history that includes congestive heart failure, hypertension and interstitial pulmonary fibrosis who returns to the ED today 4 days post discharge from rehab for further evaluation of worsening shortness of breath and cough. On exam, the patient reports discomfort extreme fatigue. She does confirm shortness of breath with wheezing and rattling, pain on inspiration, pain with cough radiates through to her back, and painful BLE edema. She denies headache, blurred vision, sore throat, sputum production, abdominal pain, change in bowel habits. Chest x-ray is unchanged since last admission. Lab work is significant for WBC 13.6 with a left shift, sodium 136, potassium 3.3, chloride 94, carbon dioxide 34, BUN 37, creatinine 1.20, troponin I 0.086, BNP 104. Urinalysis and urine drug screen are both negative. This case been discussed with the ER physician as well as Dr. Donis, admitting physician, and the patient will be admitted to the hospital medicine service for further evaluation and treatment. After discussion with the patient, she has confirmed that she is a DNR. She presented the floor nurse with a living will that confirms this. She has also requested to go home on hospice. We will consult case management to arrange hospice care. Meanwhile, we will continue comfort care measures to relieve the patient. Home medications have been reviewed and reconciled. Home Medications Medication Instructions Recorded Confirmed Type Aspirin [Ecotrin] 81 mg PO QAM 12/21/15 05/27/17 History Budesonide/Formoterol 160-4.5 1 puff INH BID 12/21/15 05/27/17 History [Symbicort 160-4.5] Carvedilol [Coreg] 3.125 mg PO BID 12/21/15 05/27/17 History Omeprazole 40 mg PO QAM 04/10/16 05/27/17 History Ipratropium/Albuterol Sulfate 3 ml INH Q4H PRN 07/23/16 05/27/17 History [Iprat-Albut 0.5-3(2.5) mg/3 ml] Multivitamin (Centrum) [Centrum 1 tablet PO BEDTIME 07/23/16 05/27/17 History Tab] Polyethylene Glycol Powder 17 gm PO QAM 05/19/17 05/27/17 History [Miralax] Rosuvastatin Calcium 10 mg PO BEDTIME 05/19/17 05/27/17 History Valsartan 40 mg PO QAM 05/19/17 05/27/17 History predniSONE TAB [PredniSONE] 20 mg PO QAM 05/19/17 05/27/17 History Furosemide Tab [Lasix Tab] 40 mg PO BID DIURETIC #60 tablet 05/23/17 05/27/17 Rx HYDROcodone/ACETAMIN 5-325 [[place] 1 tablet PO Q4H PRN #30 tablet 05/23/17 Rx 5-325] Zinc Oxide 16% Paste [Linda's 1 applic TOP PRN PRN applic 05/23/17 Rx Butt Paste] guaiFENesin LIQUID [Robitussin] 15 ml PO Q4H PRN #1 05/23/17 05/27/17 Rx Levofloxacin Tab [Levaquin Tab] 500 mg PO [id number] 05/27/17 05/27/17 History Pantoprazole Tab [Protonix Tab] 40 mg PO DAILY 05/27/17 05/27/17 History Allergies Allergy/AdvReac Type Severity Reaction Status Date / Time Iodinated Contrast Media - Allergy Unknown Unknown/Unable Verified 04/10/16 15: 41 Oral and to obtain [Iodinated Contrast Media - IV Dye] iodine Allergy Unknown Unknown/Unable Verified 04/10/16 15:41 to obtain nystatin Allergy Verified 05/25/17 18:20 nystatin swish & swallow Allergy Uncoded 05/25/17 18:20 Medical,Surgical,& Family Hx - Medical History Cardio: History of: CHF, CAD, Hypertension, Cardiovascular Problems No history of: [place] Endocrine: History of: Dyslipidemia Rheumatology: History of;: Rheumatoid Arthritis Respiratory: History of: Asthma, Bronchitis, COPD, Respiratory Problems (pul fibrosis) Renal: History of: Renal Failure, Renal Problems Gastrointestinal: History of: GERD, GI Problems (large hiatal hernia with aspiration) Musculoskeletal: History of: Musculoskeletal Problems (left shoulder pain) Hematology: History of: Anemia - Surgical History Cardiac Surgeries: Sugical HX of: Cardiac Surgery (CABG X3 1996) Thoracic Surgeries: Patient denies;: Organ Transplant, Lobectomy HEENT Surgeries: Surgical HX of: Eye Surgery, Tonsilectomy & Adenoidectomy Abdominal Surgeries: Surgical HX of: Appendectomy, Cholecystectomy Reproductive Surgeries: Surgical HX of;: Section Patient denies;: Genitourinary Surgery Orthopedic Surgeries: Surgical HX of;: Orthopedic Surgery (shoulder surgery), Total Knee Replacement (left knee X2) - Family History Family History: Reports;: Family Cancer (father-stomach), Family Heart Disease ( CHF-mom), Family Hypertension - Social History Smoking Status: Never smoker Frequency of Alcohol Use: None Marital Status: Lives With:: Alone Functional capacity: independent ambulation 12 point system: reviewed and no additional remarkable complaints except as stated Exam - Constitutional Vitals: Period Temp Pulse Resp BP Sys/Merino Pulse Ox Last 24 Hr 97.6 F 88-98 20-22 138/86 85-100 General appearance: mild distress, over weight - Head Head exam: Present: normal inspection, normocephalic, atraumatic - Eye Eye exam: Present: EOMI Pupils: Present: JOSE - ENT ENT exam: Present: normal exam - Neck Neck exam: Present: normal inspection - Respiratory Respiratory exam: Present: decreased breath sounds, rales, rhonchi, wheezes - Cardiovascular Cardiovascular exam: Present: tachycardia. Absent: carotid bruit, gallop, rubs - GI/Abdominal GI/Abdominal exam: Present: normal bowel sounds, soft. Absent: distended, mass , tenderness, rebound - Extremities Exam Extremities exam: Present: edema (pitting edema in BLE) - Neurological Exam Neurological exam: Present: alert, oriented X3, CN II-XII intact, reflexes normal - Psychiatric Psychiatric exam: Present: anxious, depressed - Skin Skin exam: Present: warm, erythema. Absent: cyanosis, diaphoretic Results - Labs CBC & BMP: 05/27/17 12:20 05/27/17 12:20 Lab Results: I have reviewed the past 24 hour labs - EKG EKG results: interpreted by ERMD - Diagnostic Findings Procedure: Chest x-ray: image reviewed by me, report reviewed by me
[2017-05-27] MEDS ORDERED: LACTULOSE 20 GM/30 ML UDCUP PO PRN (15:33)
[2017-05-27] MEDS ORDERED: DOCUSATE SODIUM 100 MG CAPSULE PO PRN (15:33)
[2017-05-27] MEDS ORDERED: ACETAMINOPHEN 325 MG TABLET PO PRN (15:33)
[2017-05-27] MEDS ORDERED: LORazepam 2 MG/1 ML VIAL IV PRN (15:42)
[2017-05-27] MEDS ORDERED: ALBUTEROL/IPRATROPIUM 3 ML NEB RESP TX PRN (15:50)
[2017-05-27] MEDS ORDERED: guaiFENesin 200 MG/10 ML UDCUP PO PRN (15:50)
[2017-05-27] MEDS ORDERED: ZINC OXIDE 16% PASTE 57 GM TUBE TOP PRN (15:50)
[2017-05-27] MEDS ORDERED: POTASSIUM CHLORIDE 20 MEQ TABLET PO PRN (15:55)
[2017-05-27] MEDS ORDERED: POTASSIUM CHLORIDE RIDER 10 MEQ in PREMIX 1 EACH IV PRN (15:55)
[2017-05-27] MEDS: MORPHINE 2 MG/1 ML SYRINGE IV PRN ×2 (17:11→20:59)
[2017-05-27] MEDS: PANTOPRAZOLE 40 MG TABLET PO SCH (17:35)
[2017-05-27] MEDS: FUROSEMIDE 40 MG/4 ML VIAL IV SCH (17:47)
[2017-05-27] MEDS: BUDESONIDE/FORMOTEROL 160-4.5 INHALER 6 GM INH SCH ×2 (21:00→21:04)
[2017-05-27] MEDS: ROSUVASTATIN 10 MG TABLET PO SCH (21:00)
[2017-05-27] MEDS: MULTIVITAMIN (CENTRUM) TABLET PO SCH ×2 (21:00→21:03)
[2017-05-27] MEDS: LEVOFLOXACIN INJ 500 MG in PREMIX 1 EACH IV SCH (21:00)
[2017-05-27] MEDS: CARVEDILOL 3.125 MG TABLET PO SCH (21:01)
[2017-05-28] MEDS: MORPHINE 2 MG/1 ML SYRINGE IV PRN ×5 (01:55→23:32)
[2017-05-28 07:05] LABS: Basophils % 0.2 % (0.0-0.8); Hematocrit 34.6 VOL% (35.7-47.0); Hemoglobin 11.8 GM/DL (12.0-16.0); Immature Granulocytes % 1.1 %; Lymphocytes # 0.6 10*3/uL (1.4-4.0); Lymphocytes % 6.1 % (21.3-54.2); Mean Corpuscular HGB Conc 34.1 GM/DL (32-36); Mean Corpuscular Hemoglobin 32 PG (27-34); Mean Corpuscular Volume 95.1 FL (87-102); Mean Platelet Volume 10.9 FL (9.6-12.0); Monocytes # 0.4 10*3/uL (0.11-0.8); Monocytes % 4.6 % (1.7-12.7); Neutrophils # 8.2 10*3/uL (1.4-7.4); Platelet Count 176 T/CUMM (130-400); Red Blood Count 3.64 MC/CUMM (3.8-5.5); Red Cell Distribution Width 13.6 % (9.3-17.3); White Blood Count 9.3 T/CUMM (4-12)
[2017-05-28 07:36] LABS: Calcium 8.5 MG/DL (8.5-10.1); Osmolality,Calculated 285.5 MOS/KG (273-304); Potassium 3.8 MMOL/L (3.5-5.1)
[2017-05-28 07:41] LABS: Troponin I Only 0.065 NG/ML (0.00-0.045)
[2017-05-28] MEDS: POLYETHYLENE GLYCOL POWDER 255 GM BOTTLE PO SCH (08:02)
[2017-05-28] MEDS: BUDESONIDE/FORMOTEROL 160-4.5 INHALER 6 GM INH SCH ×2 (08:02→21:59)
[2017-05-28] MEDS: PANTOPRAZOLE 40 MG TABLET PO SCH (08:02)
[2017-05-28] MEDS: FUROSEMIDE 40 MG/4 ML VIAL IV SCH ×2 (08:02→15:38)
[2017-05-28] MEDS: CARVEDILOL 3.125 MG TABLET PO SCH ×2 (09:01→20:34)
[2017-05-28] MEDS: VALSARTAN 80 MG TABLET PO SCH (09:01)
[2017-05-28] MEDS: predniSONE 20 MG TABLET PO SCH (09:01)
[2017-05-28] MEDS: ASPIRIN EC 81 MG TABLET PO SCH (09:01)
--- NOTE | 2017-05-28 09:55 | XRay Report ---
History: Shortness of breath Date: 05/28/2017 Study: Chest x-ray AP portable Comparison exam: 05/27/2017 The cardiomediastinal silhouette is unchanged. The bilateral pulmonary infiltrates are grossly similar without interval change. There is no pleural effusion. Osseous structures are unchanged. Impression: No gross interval change PROCEDURE INTERPRETED AT [facility] DEPARTMENT OF RADIOLOGY Final Report Signed by: Dr. Tricia Mcclain
--- NOTE | 2017-05-28 13:20 | Hospitalist Progress Note ---
Assessment and Plan (1) Interstitial pulmonary fibrosis Status: Chronic Assessment and plan: Adavance. Plan Hospice care consult in am. Continue current care Current Visit: No (2) Hypertension Status: Chronic Assessment and plan: stable Current Visit: No (3) Dyspnea Status: Acute Assessment and plan: due to advance lung disease. Plan Comfort care Current Visit: No (4) Acute exacerbation of congestive heart failure Status: Acute Assessment and plan: continue current care Current Visit: No Hospitalist: Subjective Interval history: Patient is an 86yr old female with a history of advance pulm fibrosis who has been in and out of the hospital for lung related issues. Family wants hospice and comfort care. Exam - Constitutional Vitals: Period Temp Pulse Resp BP Sys/Merino Pulse Ox Last 24 Hr 96.7 F-98.2 F 71-107 16-21 114-126/56-82 93-97 General appearance: mild distress - Head Head exam: Present: normal inspection - Respiratory Respiratory exam: Present: decreased breath sounds - Cardiovascular Cardiovascular exam: Present: regular rate and rhythm - GI/Abdominal GI/Abdominal exam: Present: normal bowel sounds - Extremities Exam Extremities exam: Present: normal inspection Results - Labs CBC & BMP: 05/28/17 06:18 05/28/17 06:18 Lab Results: I have reviewed the past 24 hour labs
[2017-05-28] MEDS: LEVOFLOXACIN INJ 500 MG in PREMIX 1 EACH IV SCH (20:34)
[2017-05-28] MEDS: ROSUVASTATIN 10 MG TABLET PO SCH (20:34)
[2017-05-28] MEDS: MULTIVITAMIN (CENTRUM) TABLET PO SCH (20:51)
[2017-05-29] MEDS: MORPHINE 2 MG/1 ML SYRINGE IV PRN ×4 (04:16→15:34)
[2017-05-29 05:59] LABS: Basophils % 0.2 % (0.0-0.8); Eosinophils % 0.1 % (0.00-10.9); Hematocrit 34.4 VOL% (35.7-47.0); Hemoglobin 11.6 GM/DL (12.0-16.0); Immature Granulocytes Absolute 0.13 #; Lymphocytes # 0.9 10*3/uL (1.4-4.0); Lymphocytes % 6.8 % (21.3-54.2); Mean Corpuscular HGB Conc 33.7 GM/DL (32-36); Mean Corpuscular Hemoglobin 32 PG (27-34); Mean Corpuscular Volume 95.6 FL (87-102); Monocytes # 0.9 10*3/uL (0.11-0.8); Monocytes % 7.5 % (1.7-12.7); Neutrophils # 10.6 10*3/uL (1.4-7.4); Neutrophils % 84.4 % (38.7-73.9); Platelet Count 180 T/CUMM (130-400); Red Cell Distribution Width 13.8 % (9.3-17.3); White Blood Count 12.6 T/CUMM (4-12)
[2017-05-29 06:26] LABS: Calcium 8.4 MG/DL (8.5-10.1); Osmolality,Calculated 283.8 MOS/KG (273-304); Potassium 3.6 MMOL/L (3.5-5.1)
[2017-05-29] MEDS: ASPIRIN EC 81 MG TABLET PO SCH (08:02)
[2017-05-29] MEDS: FUROSEMIDE 40 MG/4 ML VIAL IV SCH (08:02)
[2017-05-29] MEDS: PANTOPRAZOLE 40 MG TABLET PO SCH (08:02)
[2017-05-29] MEDS: CARVEDILOL 3.125 MG TABLET PO SCH (08:02)
[2017-05-29] MEDS: BUDESONIDE/FORMOTEROL 160-4.5 INHALER 6 GM INH SCH (08:02)
[2017-05-29] MEDS: POLYETHYLENE GLYCOL POWDER 255 GM BOTTLE PO SCH (08:02)
[2017-05-29] MEDS: VALSARTAN 80 MG TABLET PO SCH (08:02)
[2017-05-29] MEDS: predniSONE 20 MG TABLET PO SCH (08:02)
--- NOTE | 2017-05-29 09:14 | Pulmonology Progress Note ---
Pulmonary - PN: Subj Interval history: Patient is an 86-year-old white lady that has interstitial lung disease. She has a history of heart failure along with coronary artery disease and atrial fibrillation. She was at the swing bed has not been eating or wanting to do much. Her cough is a little worse and she gets short of breath easily. She and her family have decided that she does want to be kept comfortable. They are considering going home with hospice. She is actually breathing comfortably on low-flow oxygen. She does have a harsh cough. She is not eating very well at all. She says the morphine is helping some. Exam (Progress Note) - Constitutional Vitals: Period Temp Pulse Resp BP Sys/Merino Pulse Ox Last 24 Hr 96.7 F-98.0 F 89-104 16-20 97-129/50-57 94-97 General appearance: normal weight, no acute distress (She is resting comfortably on low-flow oxygen.) - Head Head exam: Present: normal inspection, normocephalic - Eye Eye exam: Present: EOMI. Absent: scleral icterus Pupils: Present: JOSE - ENT ENT exam: Present: normal exam - Neck Neck exam: Absent: lymphadenopathy, thyromegaly - Respiratory Respiratory exam: Present: decreased breath sounds, rales, rhonchi - Cardiovascular Cardiovascular exam: Present: regular rate and rhythm. Absent: gallop, systolic murmur - GI/Abdominal GI/Abdominal exam: Present: normal bowel sounds, soft. Absent: organomegaly, tenderness - Extremities Exam Extremities exam: Absent: calf tenderness, edema - Neurological Exam Neurological exam: Present: alert - Psychiatric Psychiatric exam: Present: depressed - Skin Skin exam: Present: warm, dry Results - Labs CBC & BMP: 05/29/17 04:51 05/29/17 04:51 - Diagnostic Findings Procedure: Chest x-ray: image reviewed by me, report reviewed by me (Chest x- ray shows bilateral interstitial changes but this is not worse.) Assessment and Plan (1) S/P CABG x 3 Status: Chronic Assessment and plan: The patient has a history of chronic heart disease. Current Visit: No (2) Interstitial pulmonary fibrosis Status: Chronic Assessment and plan: The patient has interstitial fibrosis but has adequate oxygenation. I am not sure she wants to continue prednisone. She just wants to be kept comfortable. Current Visit: No (3) CAD (coronary artery disease) Status: Chronic Assessment and plan: She is not having any angina now. Current Visit: No (4) Debility Status: Acute Assessment and plan: The patient is very elderly and debilitated and has decided to go for hospice care. Current Visit: No
--- NOTE | 2017-05-29 11:16 | Physician Query Form ---
CLICK EDIT DOCUMENT TO SELECT QUERY ANSWER --> OK --> SIGN Padmini Adams RN, CCDS Certified Clinical Fundraising Sale Representative W) [phone] (f) [phone] [email or web address]: Make your selection(s) from the choices in EACH section by typing an "x" and enter comments in the comment section. Please use your independent medical judgment in providing your response. This request does not imply that any particular answer is desired or expected. CLINICAL INDICATORS: (Providers should not edit this section) The medical record indicates that the patient was admitted with progressive pulmonary fibrosis, CHF Acute, BNP of 104#, and the patient was treated with Coreg/ Lasix (IV). Please provide further specificity regarding CHF. ACUITY: (x ) Acute ( ) Chronic ( ) Acute on Chronic ( ) Clinically unable to determine TYPE: ( ) Systolic (HFrEF - heart failure with reduced systolic function/EF) ( ) Diastolic (HFpEF - heart failure with preserved systolic function/EF) ( ) Combined Systolic/Diastolic ( ) Other, please specify: (x ) Clinically unable to determine ( ) Past Medical History of Systolic CHF ( ) Past Medical History of Diastolic CHF ( ) Clinically unable to determine COMMENTS: PLEASE ALSO DOCUMENT RESPONSE IN PROGRESS NOTES AND/OR DISCHARGE SUMMARY Use of terms such as suspected, likely, or probable (associated with a specific diagnosis that is being evaluated, monitored, or treated as if it exists) are acceptable and can be restated in the discharge summary if not ruled out. MTDD
--- NOTE | 2017-05-29 11:26 | Physician Query Form ---
CLICK EDIT DOCUMENT TO SELECT QUERY ANSWER --> OK --> SIGN Padmini Adams RN, CCDS Certified Clinical [employer] Paper Machine Operator W) [phone] (f) [phone] [email or web address] PROVIDERS: Make your selection(s) from the choices in EACH section by typing an "x" and enter comments in the comment section. Please use your independent medical judgment in providing your response. This request does not imply that any particular answer is desired or expected. CLINICAL INDICATORS: (Providers should not edit this section) The medical record indicates that the patient as admitted with progressive pulmonary fibrosis, "complaints of increasing shortness of breath", "decrement and are already low O2 saturation", Respirations of 20# and the patient was treated oxygen per NC with 2 liters. ----"She and her family have decided that she does want to be kept comfortable. They are considering going home with hospice" Based on the above, could you clarify the appropriate diagnosis, if significant , that supports the above abnormalities and additional evaluation, monitoring, and/or treatment rendered: ( x) Patient was treated or monitored for chronic respiratory failure ( ) Patient was not treated or monitored for chronic respiratory failure ( ) Other, please specify: ( ) Clinically unable to determine COMMENTS: PLEASE ALSO DOCUMENT RESPONSE IN PROGRESS NOTES AND/OR DISCHARGE SUMMARY Use of terms such as suspected, likely, or probable (associated with a specific diagnosis that is being evaluated, monitored, or treated as if it exists) are acceptable and can be restated in the discharge summary if not ruled out. MTDD
[2017-05-29 12:46] VITALS: BP 133/61
--- NOTE | 2017-05-29 13:39 | Discharge Summary ---
Hospital Course - Hospital Course Hospital Course: 86-year-old white female with history of advanced interstitial pulmonary fibrosis, congestive heart failure, and hypertension admitted by the hospitalist on 05/27/2017 from swing bed with fatigue and shortness of breath. Patient and daughter state that they were tired of frequent visits to the hospital and have decided to go home on hospice. They did not want any heroic measures and patient was made a DNR. Patient has been coughing and easily become short of breath. She is breathing comfortably on low flow oxygen she is not eating well. Patient has been started on scheduled morphine dosage for comfort. Patient is being discharged home on [facility] hospice with her primary care physician Dr. Murillo in [facility]. Care coordination, chart review, and completed discharge paperwork took approximately 35 minutes. - Time spent with patient Time with patient DS: Greater than 30 minutes Diagnosis - Discharge Diagnosis (1) Acute exacerbation of congestive heart failure Status: Chronic (2) Atrial fibrillation Status: Chronic (3) COPD (chronic obstructive pulmonary disease) Status: Chronic (4) Debility Status: Chronic (5) Dyspnea Status: Chronic (6) Fatigue Status: Chronic (7) CAD (coronary artery disease) Status: Chronic (8) Hypertension Status: Chronic (9) Interstitial pulmonary fibrosis Status: Chronic Specialty Discharge - Follow Up or Referrals Discharge Plan - Discharge Medications New fentaNYL 50 MCG/HR PATCH [Duragesic 50 Patch] 1 patch TRANSDERM Q3DAY #5 patch Morphine Sulfate [Morphine Conc Liquid] 10 - 60 mg PO Q2-3H #30 ml No Action Budesonide/Formoterol 160-4.5 [Symbicort 160-4.5] 1 puff INH BID Aspirin [Ecotrin] 81 mg PO QAM Carvedilol [Coreg] 3.125 mg PO BID Omeprazole 40 mg PO QAM Rosuvastatin Calcium 10 mg PO BEDTIME predniSONE TAB [PredniSONE] 20 mg PO QAM Valsartan 40 mg PO QAM guaiFENesin LIQUID [Robitussin] 15 ml PO Q4H PRN #1 PRN Reason: Cough HYDROcodone/ACETAMIN 5-325 [[place] 5-325] 1 tablet PO Q4H PRN #30 tablet PRN Reason: Pain Mild (1-3) Zinc Oxide 16% Paste [Linda's Butt Paste] 1 applic TOP PRN PRN applic PRN Reason: Diaper Rash Levofloxacin Tab [Levaquin Tab] 500 mg PO [id number] Ipratropium/Albuterol Sulfate [Iprat-Albut 0.5-3(2.5) mg/3 ml] 3 ml INH Q4H PRN PRN Reason: Shortness Of Breath/Wheezing Multivitamin (Centrum) [Centrum Tab] 1 tablet PO BEDTIME Polyethylene Glycol Powder [Miralax] 17 gm PO QAM Furosemide Tab [Lasix Tab] 40 mg PO BID DIURETIC #60 tablet Pantoprazole Tab [Protonix Tab] 40 mg PO DAILY - Follow Up or Referral - Forms/Instructions Instructions: Heart Failure (DC), Chronic Kidney Disease (DC) Exam - Constitutional Vitals: Period Temp Pulse Resp BP Sys/Merino Pulse Ox Last 24 Hr 97.3 F-98.6 F 89-111 16-20 97-133/50-61 93-97 Exam: 86-year-old white female, sleepy but arousable, no acute distress Chest with bilateral rales and rhonchi CV regular rate and rhythm Abdomen soft nontender Extremities no edema Discharge Results Procedures and tests throughout hospitalization: Pending Orders 05/27/17 12:20 Blood Culture Stat 05/30/17 04:00 Basic Metabolic Panel IN AM Comp Blood Count Auto Diff IN AM Labs on day of discharge: Labs from last 24 hours 05/29/17 05/29/17 04:51 04:51 WBC 12.6 H D RBC 3.60 L Hgb 11.6 L Hct 34.4 L MCV 95.6 MCH 32 MCHC 33.7 RDW 13.8 Plt Count 180 MPV 11.0 Neut % (Auto) 84.4 H Lymph % (Auto) 6.8 L [place] % (Auto) 7.5 Eos % (Auto) 0.1 Baso % (Auto) 0.2 Neut # (Auto) 10.6 H Lymph # (Auto) 0.9 L [place] # (Auto) 0.9 H Eos # (Auto) 0.0 Baso # (Auto) 0.0 Immature Gran % 1.0 Nucleated RBC % 0.0 Immature Gran # 0.13 Nucleated RBCs # 0.00 Immature Plt Fraction 0.0 Sodium 137 Potassium 3.6 Chloride 94 L Carbon Dioxide 35 H Anion Gap 11.6 BUN 46 H Creatinine 1.40 H GFR Calculation 33 BUN/Creatinine Ratio 32.00 H Glucose 74 Calculated Osmolality 283.8 Calcium 8.4 L Preliminary micro results at discharge 05/27/17 12:20 Blood Culture - Preliminary Blood No growth at 1 day 05/27/17 12:20 Blood Culture - Preliminary Blood No growth at 1 day DS: Provider Date of admission: 05/27/17 13:20 Primary care physician: . 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
[2017-05-29] MEDS ORDERED: fentaNYL 50 MCG/HR PATCH TRANSDERM SCH (14:30)
[2017-05-29] MEDS ORDERED: LEVOFLOXACIN INJ 250 MG in PREMIX 1 EACH IV SCH (17:00)
== END 2017-05-29 15:35 | disposition hospice, home (50) | DRG 197 ==
LOC: EDUNIT# → EDBD → N.ED 10:40 → SUATTDRO 13:20 → N.EDINP 13:20 → N.5E 14:08
PROVIDERS: ADMIT Internal Medicine; ATTEND Internal Medicine